=== PATIENT | male | born 1990 | race Caucasian/White ===

== ENCOUNTER 2017-12-11 08:31 | Inpatient (IN) | payer OTHER ==
[2017-12-11 08:55] VITALS: BMI 37.3
--- NOTE | 2017-12-11 11:24 | HP ---
COWS - Scale Resting Pulse: 0= [place] 80 or Below Sweatin=Flushed/Facial Moisture Restless Observation: 1= Difficult to Sit Still Pupil Size: 1= Pupils >than Normal Bone or Joint Aches: 0= None Runny Nose/ Eye Tearin= None GI Upset > 30mins: 1= Stomach Cramp Tremor Observation: 2= Slight Tremor Visible Yawning Observation: 0= None Anxiety or Irritability: 2=Irritable/Anxious Goose Flesh Skin: 3=Piloerection COWS Score: 12 Admission ROS [facility] Chief Complaint: Here for heroin addiction treatment. Allergies/Adverse Reactions: Allergies Allergy/AdvReac Type Severity Reaction Status Date / Time No Known Allergies Allergy Verified 12/11/17 09:30 History of Present Illness: Started with heroin use at age 22. Says was using marijuana since age 14. Started xanax at age 21-offered by someone, says uses xanax ocassionally to get high (take it to sleep). Says took methadone 10mg about 3 days ago, used it to try to stop using heroin. Never used Suboxone or methadone. Uses 10 bags/day, intranasal, last night. 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 after cataract removal at age 4 and no new lens put in) Respiratory: reports: No Symptoms reported Cardiac: reports: No Symptoms Reported GI: reports: No Symptoms Reported : reports: No Symptoms Reported Musculoskeletal: reports: No Symptoms Reported Integumentary: reports: No Symptoms Reported, Other (pt states has rash on chest , abd and back since this morning- no itching, no h/o same) Neuro: reports: No Symptoms reported Psychiatric: reports: other Patient History - Patient Medical History Hx Anemia: No Hx Asthma: No Hx Chronic Obstructive Pulmonary Disease (COPD): No Hx Cancer: No Hx Cardiac Disorders: No Hx Congestive Heart Failure: No Hx Hypertension: No Hx Hypercholesterolemia: No Hx Pacemaker: No HX Cerebrovascular Accident: No Hx Seizures: No Hx Dementia: No Hx Diabetes: No Hx Gastrointestinal Disorders: No Hx Liver Disease: No Hx Genitourinary Disorders: No Hx Sexually Transmitted Disorders: No Hx Renal Disease (ESRD): No Hx Thyroid Disease: No Hx Depression: No Hx Suicide Attempt: No Hx Schizophrenia: No - Patient Surgical History Past Surgical History: Yes Hx Neurologic Surgery: No Hx Cataract Extraction: Yes (had this at age- born with cataracts) Hx Cardiac Surgery: No Hx Lung Surgery: No Hx Breast Surgery: No Hx Breast Biopsy: No Hx Abdominal Surgery: No Hx Appendectomy: No Hx Cholecystectomy: No Hx Genitourinary Surgery: No Hx Section: No Hx Orthopedic Surgery: No Anesthesia Reaction: No - PPD History Previous Implant?: Yes Documented Results: Negative w/o proof Implanted On Prior R Admission?: No - Reproductive History Patient is a Female of Child Bearing Age (11 -55 yrs old): No - Smoking Cessation Smoking history: Current every day smoker Have you smoked in the past 12 months: No Aproximately how many cigarettes per day: 10 Hx Chewing Tobacco Use: No - Substance & Tx. History Hx Alcohol Use: No Substance Use Type: Heroin, Tranquilizers (occ xanax for sleeping) Hx Substance Use Treatment: Yes (last treatment at [facility] 1 year, never jailed) - Substances Abused Heroin Route: Inhalation (uses occasionally) Frequency: Daily Amount used: 10 BAGS DAILY Age of first use: 22 Date of Last Use: 12/10/17 Alprazolam (Xanax) Route: Oral Frequency: 1-2 times per week Amount used: 2 MG PILL Age of first use: 22 Date of Last Use: 12/04/17 Family Disease History - Family Disease History Family History: Unremarkable (says no family h/o above diseases) Admission Physical Exam BHS - Vital Signs Vital Signs: Vital Signs - 24 hr 12/11/17 08:53 Temperature 98.8 F Pulse Rate 61 Respiratory 16 Rate Blood Pressure 143/93 pt states BP not usually high - Physical General Appearance: Yes: Appropriately Dressed, Mild Distress HEENTM: Yes: Hearing grossly Normal, Normal ENT Inspection, Normal Voice, Pharynx Normal (pt with dilated L pupil- no vision, and poor vision R eye: better with glasses on) Respiratory: Yes: Within Normal Limits Neck: Yes: Within Normal Limits Breast: Yes: Breast Exam Deferred Cardiology: Yes: Within Normal Limits Abdominal: Yes: Within Normal Limits Genitourinary: Yes: Within Normal Limits Back: Yes: Within Normal Limits Musculoskeletal: Yes: Within Normal Limits Extremities: Yes: Within Normal Limits Neurological: Yes: Within Normal Limits Integumentary: Yes: Rash (maculo-papular fine, mildly erythematous rash all over body- not itchy, no open lesions) Lymphatic: Yes: Within Normal Limits - Diagnostic (1) Rash and nonspecific skin eruption Status: Acute Comment: non specific rash- seems likely contact dermatitis- but states used new body wash yesterday- (2) 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
[2017-12-11] MEDS ORDERED: MAGNESIUM HYDROX 2400MG/30ML ORAL SUSPENSION 30 ML CUP PO PRN (11:55)
[2017-12-11] MEDS ORDERED: MENTHOL/PHENOL 1 EACH UD MM PRN (11:55)
[2017-12-11] MEDS ORDERED: guaiFENesin/D-METHORPHAN HB 10 ML UNIT-DOSE CUPS PO PRN (11:55)
[2017-12-11] MEDS ORDERED: MAG HYDROX/AL HYDROX/SIMETH 30 ML UNIT-DOSE CUP PO PRN (11:55)
[2017-12-11] MEDS ORDERED: MAGNESIUM CITRATE 300 ML BOTTLE PO PRN (11:55)
[2017-12-11] MEDS ORDERED: P-EPHED 60MG/TRIPROLIDI 2.5MG TABLET PO PRN (11:55)
[2017-12-11] MEDS ORDERED: NICOTINE POLACRILEX 2 MG GUM BUC PRN (11:55)
[2017-12-11] MEDS ORDERED: hydrOXYzine PAMOATE 25 MG CAPSULE (FP) PO PRN (11:55)
[2017-12-11] MEDS ORDERED: LOPERAMIDE HCL 2 MG CAPSULE PO PRN (11:55)
[2017-12-11] MEDS ORDERED: IBUPROFEN 400 MG TABLET (FP) PO PRN (11:55)
[2017-12-11] MEDS ORDERED: ACETAMINOPHEN 325 MG TABLET (FP) PO PRN (11:55)
[2017-12-11] MEDS ORDERED: METHADONE HCL 10 MG TABLET (FOR DETOX USE ONLY) PO ONE ×2 (12:21→23:00)
[2017-12-11] MEDS: diazePAM 5 MG TABLET PO PRN ×3 (12:52→22:34)
[2017-12-11 18:58] LABS: URINE APPEARANCE CLEAR; URINE BILIRUBIN NEGATIVE (<2.0 mg/dL); URINE COLOR LTYELLOW; URINE GLUCOSE (UA) NEGATIVE (NEGATIVE); URINE KETONE NEGATIVE (NEGATIVE); URINE LEUK ESTERASE NEGATIVE (NEGATIVE); URINE NITRITE NEGATIVE (NEGATIVE); URINE PROTEIN NEGATIVE (NEGATIVE); URINE UROBILINOGEN NEGATIVE mg/dL (0.2-1.0)
[2017-12-11] MEDS ORDERED: MELATONIN 5 MG TABLETS PO PRN (22:00)
[2017-12-11] MEDS: THIAMINE HCL 100 MG TABLET (FP) PO SCH (22:34)
[2017-12-11] MEDS: DORZOLAMIDE 2% HCL OPHTHALMIC SOLUTION 10 ML BOTTLE OS SCH (22:35)
[2017-12-11] MEDS: TIMOLOL 0.25% OPHTHALMIC SOL 5 ML BOTTLE OS SCH (22:35)
[2017-12-12] MEDS: diazePAM 5 MG TABLET PO PRN ×5 (04:44→23:06)
[2017-12-12 09:52] LABS: HEMATOCRIT 42.7 % (35.4-49); HEMOGLOBIN 14.4 GM/dL (11.7-16.9); MCH 29.3 pg (25.7-33.7); MCHC 33.8 g/dl (32.0-35.9); MEAN CELL VOLUME 86.8 fl (80-96); MEAN PLT VOLUME 8.9 fl (7.5-11.1); PLATELET COUNT 246 K/MM3 (134-434); RBC 4.91 M/mm3 (4.00-5.60); RDW 13.3 % (11.9-15.9); WHITE BLOOD COUNT 5.6 K/mm3 (4.0-10.0)
[2017-12-12] MEDS ORDERED: METHADONE HCL 10 MG TABLET (FOR DETOX USE ONLY) PO ONE (10:00)
[2017-12-12 10:18] LABS: CHLORIDE 102 mmol/L (98-107); POTASSIUM 4.3 mmol/L (3.5-5.1); SODIUM 140 mmol/L (136-145)
[2017-12-12 10:34] LABS: ALBUMIN 3.8 g/dl (3.4-5.0); ALK PHOS 51 U/L (45-117); ANION GAP 4 (8-16); BILIRUBIN,TOTAL 0.3 mg/dL (0.2-1.0); BLOOD UREA NITROGEN 14 mg/dL (7-18); CALCIUM 9.2 mg/dL (8.5-10.1); CO2 34 mmol/L (21-32); CREATININE 0.9 mg/dL (0.7-1.3); GLUCOSE,RANDOM 87 mg/dL (74-106); SGOT/AST 97 U/L (15-37); SGPT/ALT 61 U/L (12-78); TOT PROT 7.2 g/dl (6.4-8.2)
[2017-12-12] MEDS: DORZOLAMIDE 2% HCL OPHTHALMIC SOLUTION 10 ML BOTTLE OS SCH ×2 (10:36→23:09)
[2017-12-12] MEDS: NICOTINE 14 MG/24 HOURS TOPICAL PATCH TD SCH (10:37)
[2017-12-12] MEDS: PRENATAL VITAMINS W/ FOLIC ACID TABLET (FP) PO SCH (10:37)
[2017-12-12] MEDS: TIMOLOL 0.25% OPHTHALMIC SOL 5 ML BOTTLE OS SCH ×2 (10:37→23:09)
--- NOTE | 2017-12-12 12:31 | PN ---
S COWS - Scale Resting Pulse: 0= [place] 80 or Below Sweatin= Chills/Flushing Restless Observation: 3= Extraneous Movement Pupil Size: 2= Moderately Dilated Bone or Joint Aches: 4=Acute Joint/Muscle Pain Runny Nose/ Eye Tearin= None GI Upset > 30mins: 1= Stomach Cramp Tremor Observation of Outstretched Hands: 1= Tremor [place], Not Seen Yawning Observation: 1= 1-2x During Session Anxiety or Irritability: 2=Irritable/Anxious Goose Flesh Skin: 0=Smooth Skin COWS Score: 15 [facility] Progress Note (SOAP) Subjective: ANXIETY,IRRITABILITY,SWEATS,CRAMPS,RESTLESS/MUSCLE TWITCHING. Objective: 12/12/17 12:29 Vital Signs 12/12/17 12/12/17 06:22 09:18 Temperature 97.9 F 96.1 F L Pulse Rate 60 45 L Respiratory 18 18 Rate Blood Pressure 108/64 117/73 Laboratory Tests 12/11/17 12/12/17 12/12/17 18:00 07:30 07:30 WBC 5.6 RBC 4.91 Hgb 14.4 Hct 42.7 MCV 86.8 MCH 29.3 MCHC 33.8 RDW 13.3 Plt Count 246 MPV 8.9 Sodium Potassium Chloride Carbon Dioxide Anion Gap BUN Creatinine Creat Clearance w eGFR Random Glucose Calcium Total Bilirubin AST ALT Alkaline Phosphatase Total Protein Albumin Urine Color Ltyellow Urine Appearance Clear Urine pH 5.0 Ur Specific [place] 1.019 Urine Protein Negative Urine Glucose (UA) Negative Urine Ketones Negative Urine Blood Negative Urine Nitrite Negative Urine Bilirubin Negative Urine Urobilinogen Negative Ur Leukocyte Esterase Negative RPR Titer HIV 1&2 Antibody Screen Negative HIV P24 Antigen Negative 12/12/17 12/12/17 07:30 07:30 WBC RBC Hgb Hct MCV MCH MCHC RDW Plt Count MPV Sodium 140 Potassium 4.3 Chloride 102 Carbon Dioxide 34 H Anion Gap 4 L BUN 14 Creatinine 0.9 Creat Clearance w eGFR > 60 Random Glucose 87 Calcium 9.2 Total Bilirubin 0.3 AST 97 H ALT 61 Alkaline Phosphatase 51 Total Protein 7.2 Albumin 3.8 Urine Color Urine Appearance Urine pH Ur Specific [place] Urine Protein Urine Glucose (UA) Urine Ketones Urine Blood Urine Nitrite Urine Bilirubin Urine Urobilinogen Ur Leukocyte Esterase RPR Titer Nonreactive HIV 1&2 Antibody Screen HIV P24 Antigen Assessment: 12/12/17 12:29 WITHDRAWAL SX Plan: CONTINUE DETOX
--- NOTE | 2017-12-12 22:12 | EKG ---
Test Reason : Blood Pressure : / mmHG Vent. Rate : 073 BPM Atrial Rate : 073 BPM P-R Int : 146 ms QRS Dur : 092 ms QT Int : 378 ms P-R-T Axes : 042 056 032 degrees QTc Int : 416 ms NORMAL SINUS RHYTHM NORMAL ECG NO PREVIOUS ECGS AVAILABLE Confirmed by JARROD REYNOLDS, AGUSTO ([id number]) on 12/12/2017 10:12:23 PM Referred By: GENI LOPES Confirmed By:AGUSTO GARAY MD
[2017-12-12] MEDS: THIAMINE HCL 100 MG TABLET (FP) PO SCH (23:05)
[2017-12-13] MEDS: diazePAM 5 MG TABLET PO PRN ×2 (03:26→10:48)
[2017-12-13] MEDS ORDERED: METHADONE HCL 5 MG TABLET (FOR DETOX USE ONLY) PO ONE (10:00)
[2017-12-13] MEDS: PRENATAL VITAMINS W/ FOLIC ACID TABLET (FP) PO SCH (10:47)
[2017-12-13] MEDS: TIMOLOL 0.25% OPHTHALMIC SOL 5 ML BOTTLE OS SCH (10:48)
[2017-12-13] MEDS: NICOTINE 14 MG/24 HOURS TOPICAL PATCH TD SCH (10:49)
[2017-12-13] MEDS: DORZOLAMIDE 2% HCL OPHTHALMIC SOLUTION 10 ML BOTTLE OS SCH (10:49)
--- NOTE | 2017-12-13 12:15 | PN ---
S COWS - Scale Resting Pulse: 0= [place] 80 or Below Sweatin= Chills/Flushing Restless Observation: 3= Extraneous Movement Pupil Size: 2= Moderately Dilated Bone or Joint Aches: 1= Mild Discomfort Runny Nose/ Eye Tearin= None GI Upset > 30mins: 0= None Tremor Observation of Outstretched Hands: 4= Gross Tremor/Twitching Yawning Observation: 1= 1-2x During Session Anxiety or Irritability: 1=Feels Anxious/Irritable Goose Flesh Skin: 0=Smooth Skin COWS Score: 13 [facility] Progress Note (SOAP) Subjective: ANXIETY,RESTLESSNESS LEGS,FATIGUE. Objective: 12/13/17 12:15 Vital Signs 12/13/17 12/13/17 12/13/17 06:15 06:30 09:23 Temperature 97.5 F L 97.7 F Pulse Rate 47 L 66 Respiratory 18 18 18 Rate Blood Pressure 105/60 122/81 Laboratory Tests 12/11/17 12/12/17 12/12/17 18:00 07:30 07:30 WBC 5.6 RBC 4.91 Hgb 14.4 Hct 42.7 MCV 86.8 MCH 29.3 MCHC 33.8 RDW 13.3 Plt Count 246 MPV 8.9 Sodium Potassium Chloride Carbon Dioxide Anion Gap BUN Creatinine Creat Clearance w eGFR Random Glucose Calcium Total Bilirubin AST ALT Alkaline Phosphatase Total Protein Albumin Urine Color Ltyellow Urine Appearance Clear Urine pH 5.0 Ur Specific [place] 1.019 Urine Protein Negative Urine Glucose (UA) Negative Urine Ketones Negative Urine Blood Negative Urine Nitrite Negative Urine Bilirubin Negative Urine Urobilinogen Negative Ur Leukocyte Esterase Negative RPR Titer HIV 1&2 Antibody Screen Negative HIV P24 Antigen Negative 12/12/17 12/12/17 07:30 07:30 WBC RBC Hgb Hct MCV MCH MCHC RDW Plt Count MPV Sodium 140 Potassium 4.3 Chloride 102 Carbon Dioxide 34 H Anion Gap 4 L BUN 14 Creatinine 0.9 Creat Clearance w eGFR > 60 Random Glucose 87 Calcium 9.2 Total Bilirubin 0.3 AST 97 H ALT 61 Alkaline Phosphatase 51 Total Protein 7.2 Albumin 3.8 Urine Color Urine Appearance Urine pH Ur Specific [place] Urine Protein Urine Glucose (UA) Urine Ketones Urine Blood Urine Nitrite Urine Bilirubin Urine Urobilinogen Ur Leukocyte Esterase RPR Titer Nonreactive HIV 1&2 Antibody Screen HIV P24 Antigen Assessment: 12/13/17 12:15 WITHDRAWAL SX Plan: CONTINUE DETOX
[2017-12-13 13:27] VITALS: BP 138/87; PULSE 70; TEMP 98.6
[2017-12-13] MEDS ORDERED: CYCLOBENZAPRINE HCL 10 MG TABLET (FP) PO SCH (14:00)
--- NOTE | 2017-12-13 15:48 | DS ---
[facility] Detox Discharge Summary Admission Date: 12/11/17 Discharge Date: 12/13/17 - History Present History: Opioid Dependence Additional Comments: PT SIGNED OUT AMA DECLINING TO CONTINUE WITH DETOX PER PROTOCOL. ALERT O X 3. Pertinent Past History: PLEASE SEE DX BELOW. - Physical Exam Results Vital Signs: Vital Signs Temperature 98.6 F 12/13/17 13:25 Pulse Rate 70 12/13/17 13:25 Respiratory Rate 16 12/13/17 13:25 Blood Pressure 138/87 12/13/17 13:25 O2 Sat by Pulse Oximetry (%) Pertinent Admission Physical Exam Findings: WITHDRAWAL SX Laboratory Tests 12/11/17 12/12/17 12/12/17 18:00 07:30 07:30 WBC 5.6 RBC 4.91 Hgb 14.4 Hct 42.7 MCV 86.8 MCH 29.3 MCHC 33.8 RDW 13.3 Plt Count 246 MPV 8.9 Sodium Potassium Chloride Carbon Dioxide Anion Gap BUN Creatinine Creat Clearance w eGFR Random Glucose Calcium Total Bilirubin AST ALT Alkaline Phosphatase Total Protein Albumin Urine Color Ltyellow Urine Appearance Clear Urine pH 5.0 Ur Specific [place] 1.019 Urine Protein Negative Urine Glucose (UA) Negative Urine Ketones Negative Urine Blood Negative Urine Nitrite Negative Urine Bilirubin Negative Urine Urobilinogen Negative Ur Leukocyte Esterase Negative RPR Titer HIV 1&2 Antibody Screen Negative HIV P24 Antigen Negative 12/12/17 12/12/17 07:30 07:30 WBC RBC Hgb Hct MCV MCH MCHC RDW Plt Count MPV Sodium 140 Potassium 4.3 Chloride 102 Carbon Dioxide 34 H Anion Gap 4 L BUN 14 Creatinine 0.9 Creat Clearance w eGFR > 60 Random Glucose 87 Calcium 9.2 Total Bilirubin 0.3 AST 97 H ALT 61 Alkaline Phosphatase 51 Total Protein 7.2 Albumin 3.8 Urine Color Urine Appearance Urine pH Ur Specific [place] Urine Protein Urine Glucose (UA) Urine Ketones Urine Blood Urine Nitrite Urine Bilirubin Urine Urobilinogen Ur Leukocyte Esterase RPR Titer Nonreactive HIV 1&2 Antibody Screen HIV P24 Antigen - Treatment Hospital Course: Discharged Condition Good - Medication Discharge Medications: Ambulatory Orders Dorzolamide HCl/Timolol Maleat [Cosopt Eye Drops] 1 drop OS BID 12/11/17 - Diagnosis (1) Opioid dependence with withdrawal Status: Acute (2) Nicotine dependence Status: Acute Qualifiers: Nicotine product type: cigarettes Substance use status: in withdrawal Qualified Code(s): F17.213 - Nicotine dependence, cigarettes, with withdrawal (3) Blindness of left eye Status: Chronic (4) History of cataract as a child Status: Chronic Qualifiers: Laterality: left Qualified Code(s): Z98.42 - Cataract extraction status, left eye - AMA Did Patient Leave Against Medical Advice: Yes (AMA)
[2017-12-14] MEDS ORDERED: METHADONE HCL 10 MG TABLET (FOR DETOX USE ONLY) PO ONE (10:00)
[2017-12-14] MEDS ORDERED: METHADONE HCL 5 MG TABLET (FOR DETOX USE ONLY) PO ONE (10:00)
[2017-12-15] MEDS ORDERED: METHADONE HCL 5 MG TABLET (FOR DETOX USE ONLY) PO ONE (06:00)
[2017-12-15] MEDS ORDERED: METHADONE HCL 10 MG TABLET (FOR DETOX USE ONLY) PO ONE (10:00)
[2017-12-16] MEDS ORDERED: METHADONE HCL 5 MG TABLET (FOR DETOX USE ONLY) PO ONE (06:00)
== END 2017-12-13 14:12 | disposition left against medical advice (07) | DRG 770 ==
LOC: YASAS 08:31 → Y3N 11:35
PROVIDERS: ADMIT Family Medicine Addiction Medicine; ATTEND Family Medicine Addiction Medicine
PROC: HZ2ZZZZ Detoxification Services for Substance Abuse Treatment (ICD-10-PCS; principal; 2017-12-11)
DX: F11.23 Opioid dependence with withdrawal (principal); F13.10 Sedative, hypnotic or anxiolytic abuse, uncomplicated; F17.213 Nicotine dependence, cigarettes, with withdrawal; H54.40 Blindness, one eye, unspecified eye; H40.50X0 Glaucoma secondary to other eye disorders, unspecified eye, stage unspecified; R21 Rash and other nonspecific skin eruption
CPT/HCPCS: 36415; 80053; 81003; 85027; 86593; 87389; 93005; 93010

== ENCOUNTER 2018-09-27 08:51 | Inpatient (IN) | payer OTHER ==
[2018-09-27 09:31] VITALS: BMI 27.1
--- NOTE | 2018-09-27 10:54 | HP ---
COWS - Scale Resting Pulse: 0= [place] 80 or Below Sweatin= Chills/Flushing Restless Observation: 3= Extraneous Movement Pupil Size: 1= Pupils >than Normal Bone or Joint Aches: 2= Severe Diffuse Aches Runny Nose/ Eye Tearin= Runny Nose/Eyes GI Upset > 30mins: 3= Vomiting/Diarrhea Tremor Observation: 2= Slight Tremor Visible Yawning Observation: 1= 1-2x During Session Anxiety or Irritability: 2=Irritable/Anxious Goose Flesh Skin: 0=Smooth Skin COWS Score: 17 CIWA Score Nausea/Vomitin Muscle Tremors: 2 Anxiety: 2 Agitation: 2 Paroxysmal Sweats: 2 Orientation: 1-Uncertain about Date Tacttile Disturbances: 1-Very Mild Itch/Numbness Auditory Disturbances: 1-Very Mild Visual Disturbances: 0-None Headache: 2-Mild CIWA-Ar Total Score: 15 - Admission Criteria [facility] Guidelines: Admission for Medically Managed Detox: Requires at least one of the followin. CIWA greater than 12 2. Seizures within the past 24 hours 3. Delirium tremens within the past 24 hours 4. Hallucinations within the past 24 hours 5. Acute intervention needed for co occurring medical disorder 6. Acute intervention needed for co occurring psychiatric disorder 7. Severe withdrawal that cannot be handled at a lower level of care (continued vomiting, continued diarrhea, abnormal vital signs) requiring intravenous medication and/or fluids 8. Admission ROS S - HPI Chief Complaint: i nee help to stop using heroin and alcohol Allergies/Adverse Reactions: Allergies Allergy/AdvReac Type Severity Reaction Status Date / Time No Known Allergies Allergy Verified 09/27/18 09:24 History of Present Illness: this 28 years old male with heroin and alcohol dependence,seeking detox, withdrawal symptom,seeking detox last treatment in [facility] 01/04 nicotine dependence insomnia on medication fx of right 5th metacarpal bone on 09/16/18 seen by pmd and hand specialist on splint longest sobriety 8 months plan for rehab Exam Limitations: No Limitations - Ebola screening Have you traveled outside of the country in the last 21 days: No (N) Have you had contact with anyone from an Ebola affected area: No Do you have a fever: No - Review of Systems Constitutional: Chills, Loss of Appetite, Night Sweats, Changes in sleep, Weakness EENT: reports: Tearing, Nose Congestion Respiratory: reports: No Symptoms reported Cardiac: reports: No Symptoms Reported GI: reports: Nausea, Poor Appetite, Vomiting, Abdominal cramping : reports: No Symptoms Reported Musculoskeletal: reports: Back Pain, Joint Pain, Joint Stiffness, Other (fx of right 5th metacarpal bone on 09/16/18 on splint seen by hand specialist) Integumentary: reports: Dryness Neuro: reports: Headache, Tremors Endocrine: reports: No Symptoms Reported Hematology: reports: No Symptoms Reported Psychiatric: reports: No Sypmtoms Reported, Judgement Intact, Mood/Affect Appropiate, Orientated x3, other (insomnia) Other Systems: Reviewed and Negative Patient History - Patient Medical History Hx Anemia: No Hx Asthma: No Hx Chronic Obstructive Pulmonary Disease (COPD): No Hx Cancer: No Hx Cardiac Disorders: No Hx Congestive Heart Failure: No Hx Hypertension: No Hx Hypercholesterolemia: No Hx Pacemaker: No HX Cerebrovascular Accident: No Hx Seizures: No Hx Dementia: No Hx Diabetes: No Hx Gastrointestinal Disorders: No Hx Liver Disease: No Hx Genitourinary Disorders: No Hx Sexually Transmitted Disorders: No Hx Renal Disease (ESRD): No Hx Thyroid Disease: No Hx Human Immunodeficiency Virus (HIV): No (last 05/07 negative) Hx Hepatitis C: No Hx Depression: No Hx Suicide Attempt: No Hx Bipolar Disorder: No Hx Schizophrenia: No Other Medical History: insomnia,no suicidal,no homicidal - Patient Surgical History Past Surgical History: Yes Hx Neurologic Surgery: No Hx Cataract Extraction: Yes (had this at age- born with cataracts legally blindness left) Hx Cardiac Surgery: No Hx Lung Surgery: No Hx Breast Surgery: No Hx Breast Biopsy: No Hx Abdominal Surgery: No Hx Appendectomy: No Hx Cholecystectomy: No Hx Genitourinary Surgery: No Hx Section: No Hx Orthopedic Surgery: No Other Surgical History: blindness of left eye,since Anesthesia Reaction: No - PPD History Previous Implant?: Yes Documented Results: Negative w/o proof Implanted On Prior R Admission?: Yes Date: 12/13/17 Results: not read PPD to be Administered?: Yes - Smoking Cessation Smoking history: Current every day smoker Have you smoked in the past 12 months: No Aproximately how many cigarettes per day: 10 Hx Chewing Tobacco Use: No Initiated information on smoking cessation: Yes 'Breaking Loose' booklet given: 09/27/18 - Substance & Tx. History Hx Alcohol Use: Yes Hx Substance Use: Yes Substance Use Type: Alcohol, Heroin Hx Substance Use Treatment: Yes ([facility] 01/04) - Substances abused Heroin Substance route: Inhalation Frequency: Daily Amount used: 10 bags Age of first use: 22 Date of last use: 09/26/18 Alcohol Substance route: Oral Frequency: Daily Amount used: 1/2 L liquor, Age of first use: 14 Date of last use: 09/25/18 Other Other (specify): street methadone Substance route: Oral Frequency: 1-2 times per week Amount used: 20mg Age of first use: 28 Date of last use: 09/24/18 Family Disease History - Family Disease History Family History: Denies Admission Physical Exam S - Vital Signs Vital Signs: Vital Signs - 24 hr 09/27/18 09/27/18 09:25 09:40 Temperature 98.1 F 98.1 F Pulse Rate 55 L 55 L Respiratory 18 18 Rate Blood Pressure 141/92 141/92 - Physical General Appearance: Yes: Moderate Distress, Tremorous, Irritable, Sweating, Anxious HEENTM: Yes: Normal ENT Inspection, LOGAN, Pharynx Normal Respiratory: Yes: Lungs Clear, Normal Breath Sounds, No Respiratory Distress Neck: Yes: Within Normal Limits, Supple, Trachea in good position Breast: Yes: Within Normal Limits Cardiology: Yes: Within Normal Limits, Regular Rhythm, Regular Rate, S1, S2 Abdominal: Yes: Within Normal Limits, Normal Bowel Sounds, Non Tender, Flat, Soft Genitourinary: Yes: Within Normal Limits Back: Yes: Normal Inspection, Muscle Spasm Musculoskeletal: Yes: Back pain, Muscle Pain Extremities: Yes: Other (fx of right 5th metacarpal bone on splint treated by hand specialist on 09/16/18) Neurological: Yes: Within Normal Limits, fire dispatcher II-XII NML intact, Alert, Motor Strength 5/5 Integumentary: Yes: Dry Lymphatic: Yes: Within Normal Limits - Diagnostic (1) Opioid dependence with withdrawal Current Visit: No Status: Acute (2) Nicotine dependence Current Visit: No Status: Acute Qualifiers: Nicotine product type: cigarettes Substance use status: in withdrawal Qualified Code(s): F17.213 - Nicotine dependence, cigarettes, with withdrawal (3) Blindness of left eye Current Visit: No Status: Chronic Comment: after cataract extraction and not able to replace lens as a child (4) Glaucoma associated with anomalies of iris Current Visit: No Status: Chronic Comment: pt states now has mild glaucoma, after cataract extraction as child (5) History of cataract as a child Current Visit: No Status: Chronic Qualifiers: Laterality: left Qualified Code(s): Z98.42 - Cataract extraction status, left eye (6) Alcohol dependence with uncomplicated withdrawal Current Visit: Yes Status: Acute (7) Closed fracture of 5th metacarpal Current Visit: Yes Status: Acute Cleared for Admission [facility] - Detox or Rehab [facility] Level of Care: Medically Managed Detox Regimen/Protocol: Methadone/Valium Urine Drug Screen - Test Device Lot number: [id number] Expiration date: 05/19/20 - Control Is test valid?: Yes - Results Drug screen NEGATIVE: No Urine drug screen results: MET-Methamphetamine, FEN-Fentanyl, MOP-Opiates, MTD- Methadone Inpatient Rehab Admission - Rehab Decision to Admit Inpatient rehab admission?: No
[2018-09-27] MEDS ORDERED: ACETAMINOPHEN 325 MG TABLET (FP) PO PRN ×2 (11:06)
[2018-09-27] MEDS ORDERED: METHOCARBAMOL 500 MG TABLET PO PRN (11:06)
[2018-09-27] MEDS ORDERED: cloNIDine HCL 0.1 MG TABLET PO PRN (11:06)
[2018-09-27] MEDS ORDERED: MAGNESIUM HYDROX 2400MG/30ML ORAL SUSPENSION 30 ML CUP PO PRN (11:06)
[2018-09-27] MEDS ORDERED: IBUPROFEN 400 MG TABLET (FP) PO PRN (11:06)
[2018-09-27] MEDS ORDERED: BISMUTH SUBSALICYLATE 524 MG/30 ML UD PO PRN (11:06)
[2018-09-27] MEDS ORDERED: hydrOXYzine PAMOATE 25 MG CAPSULE (FP) PO PRN (11:06)
[2018-09-27] MEDS ORDERED: MENTHOL/PHENOL 1 EACH UD MM PRN (11:06)
[2018-09-27] MEDS ORDERED: MAGNESIUM CITRATE 300 ML BOTTLE PO PRN (11:06)
[2018-09-27] MEDS ORDERED: METHADONE HCL 10 MG TABLET (FOR DETOX USE ONLY) PO ONE ×2 (11:08→23:00)
[2018-09-27] MEDS: diazePAM 5 MG TABLET PO PRN ×2 (11:53→18:55)
[2018-09-27] MEDS: diazePAM 5 MG TABLET PO SCH ×2 (14:40→22:16)
[2018-09-27 16:07] LABS: ALBUMIN 4.2 g/dl (3.4-5.0); ALK PHOS 64 U/L (45-117); ANION GAP 6 MMOL/L (8-16); BILIRUBIN,TOTAL 0.2 mg/dL (0.2-1); BLOOD UREA NITROGEN 11 mg/dL (7-18); CALCIUM 8.8 mg/dL (8.5-10.1); CHLORIDE 98 mmol/L (98-107); CO2 33 mmol/L (21-32); GLUCOSE,RANDOM 76 mg/dL (74-106); POTASSIUM 4.1 mmol/L (3.5-5.1); SGOT/AST 16 U/L (15-37); SGPT/ALT 30 U/L (13-61); SODIUM 137 mmol/L (136-145); TOT PROT 7.8 g/dl (6.4-8.2)
[2018-09-27 16:24] LABS: URINE APPEARANCE CLEAR; URINE BILIRUBIN NEGATIVE (NEGATIVE); URINE COLOR YELLOW; URINE GLUCOSE (UA) NEGATIVE (NEGATIVE); URINE KETONE NEGATIVE (NEGATIVE); URINE LEUK ESTERASE NEGATIVE (NEGATIVE); URINE NITRITE NEGATIVE (NEGATIVE); URINE PROTEIN NEGATIVE (NEGATIVE); URINE UROBILINOGEN 0.2 mg/dL (0.2-1.0)
[2018-09-27 16:38] LABS: HEMATOCRIT 43.8 % (35.4-49); HEMOGLOBIN 14.8 GM/dL (11.7-16.9); MCH 29.7 pg (25.7-33.7); MCHC 33.8 g/dl (32.0-35.9); MEAN CELL VOLUME 87.8 fl (80-96); MEAN PLT VOLUME 8.6 fl (7.5-11.1); PLATELET COUNT 347 K/MM3 (134-434); RBC 4.99 M/mm3 (4.00-5.60); RDW 12.6 % (11.9-15.9); WHITE BLOOD COUNT 6.7 K/mm3 (4.0-10.0)
[2018-09-27] MEDS: MAG HYDROX/AL HYDROX/SIMETH 30 ML UNIT-DOSE CUP PO PRN (20:46)
[2018-09-27] MEDS ORDERED: PATIENT'S OWN MEDICATION (NON-FORMULARY) (Dorzolamide Hcl/Timolol Maleat [Cosopt Eye Drops OS SCH (22:00)
[2018-09-27] MEDS: traZODone HCL 50 MG TABLET (FP) PO SCH (22:15)
[2018-09-27] MEDS: THIAMINE HCL 100 MG TABLET (FP) PO SCH (22:15)
[2018-09-27] MEDS: DORZOLAMIDE 2% HCL OPHTHALMIC SOLUTION 10 ML BOTTLE OS SCH (22:17)
[2018-09-27] MEDS: TIMOLOL 0.5% OPHTHALMIC SOL 5 ML BOTTLE OS SCH (22:18)
[2018-09-27] MEDS: MELATONIN 5 MG TABLETS PO PRN (22:20)
[2018-09-28] MEDS: diazePAM 5 MG TABLET PO SCH ×3 (05:28→22:28)
[2018-09-28] MEDS: diazePAM 5 MG TABLET PO PRN ×3 (08:24→17:30)
[2018-09-28] MEDS ORDERED: METHADONE HCL 10 MG TABLET (FOR DETOX USE ONLY) PO ONE (10:00)
[2018-09-28] MEDS: PRENATAL VITAMINS W/ FOLIC ACID TABLET (FP) PO SCH (10:33)
[2018-09-28] MEDS: DORZOLAMIDE 2% HCL OPHTHALMIC SOLUTION 10 ML BOTTLE OS SCH ×2 (10:33→22:28)
[2018-09-28] MEDS: TIMOLOL 0.5% OPHTHALMIC SOL 5 ML BOTTLE OS SCH ×2 (10:34→22:28)
--- NOTE | 2018-09-28 11:54 | PN ---
[facility] CIWA - CIWA Score Nausea/Vomitin-Mild Nausea/No Vomiting Muscle Tremors: 4-Moderate,w/Arms Extend Anxiety: 3 Agitation: 2 Paroxysmal Sweats: 1-Minimal Palms Moist Orientation: 1-Uncertain about Date Tacttile Disturbances: 0-None Auditory Disturbances: 0-None Visual Disturbances: 0-None Headache: 0-None Present CIWA-Ar Total Score: 12 S COWS - Scale Resting Pulse: 0= [place] 80 or Below Sweatin= Chills/Flushing Restless Observation: 0= Sits Still Pupil Size: 0= Normal to Room Light Bone or Joint Aches: 2= Severe Diffuse Aches Runny Nose/ Eye Tearin= Nasal Congestion GI Upset > 30mins: 2= Nausea/Diarrhea Tremor Observation of Outstretched Hands: 1= Tremor [place], Not Seen Yawning Observation: 1= 1-2x During Session Anxiety or Irritability: 1=Feels Anxious/Irritable Goose Flesh Skin: 3=Piloerection COWS Score: 12 [facility] Progress Note (SOAP) Subjective: body aches tired trouble resting at night Objective: 09/28/18 11:53 Vital Signs Temperature 98.6 F 09/28/18 09:41 Pulse Rate 73 09/28/18 09:41 Respiratory Rate 20 09/28/18 09:41 Blood Pressure 104/67 09/28/18 09:41 O2 Sat by Pulse Oximetry (%) Laboratory Last Values WBC 6.7 K/mm3 (4.0-10.0) 09/27/18 11:15 RBC 4.99 M/mm3 (4.00-5.60) 09/27/18 11:15 Hgb 14.8 GM/dL (11.7-16.9) 09/27/18 11:15 Hct 43.8 % (35.4-49) 09/27/18 11:15 MCV 87.8 fl (80-96) 09/27/18 11:15 MCH 29.7 pg (25.7-33.7) 09/27/18 11:15 MCHC 33.8 g/dl (32.0-35.9) 09/27/18 11:15 RDW 12.6 % (11.9-15.9) 09/27/18 11:15 Plt Count 347 K/MM3 (134-434) D 09/27/18 11:15 MPV 8.6 fl (7.5-11.1) 09/27/18 11:15 Sodium 137 mmol/L (136-145) 09/27/18 11:15 Potassium 4.1 mmol/L (3.5-5.1) 09/27/18 11:15 Chloride 98 mmol/L (98-107) 09/27/18 11:15 Carbon Dioxide 33 mmol/L (21-32) H 09/27/18 11:15 Anion Gap 6 MMOL/L (8-16) L 09/27/18 11:15 BUN 11 mg/dL (7-18) 09/27/18 11:15 Creatinine 1.0 mg/dL (0.55-1.3) 09/27/18 11:15 Creat Clearance w eGFR 89.63 (>60) 09/27/18 11:15 Random Glucose 76 mg/dL (74-106) 09/27/18 11:15 Calcium 8.8 mg/dL (8.5-10.1) 09/27/18 11:15 Total Bilirubin 0.2 mg/dL (0.2-1) 09/27/18 11:15 AST 16 U/L (15-37) 09/27/18 11:15 ALT 30 U/L (13-61) 09/27/18 11:15 Alkaline Phosphatase 64 U/L (45-117) 09/27/18 11:15 Total Protein 7.8 g/dl (6.4-8.2) 09/27/18 11:15 Albumin 4.2 g/dl (3.4-5.0) 09/27/18 11:15 Urine Color Yellow 09/27/18 12:40 Urine Appearance Clear 09/27/18 12:40 Urine pH 5.0 (5.0-8.0) 09/27/18 12:40 Ur Specific [place] 1.024 (1.010-1.035) 09/27/18 12:40 Urine Protein Negative (NEGATIVE) 09/27/18 12:40 Urine Glucose (UA) Negative (NEGATIVE) 09/27/18 12:40 Urine Ketones Negative (NEGATIVE) 09/27/18 12:40 Urine Blood Negative (NEGATIVE) 09/27/18 12:40 Urine Nitrite Negative (NEGATIVE) 09/27/18 12:40 Urine Bilirubin Negative (NEGATIVE) 09/27/18 12:40 Urine Urobilinogen 0.2 mg/dL (0.2-1.0) 09/27/18 12:40 Ur Leukocyte Esterase Negative (NEGATIVE) 09/27/18 12:40 RPR Titer Nonreactive (NONREACTIVE) 09/27/18 11:15 lab noted Assessment: 09/28/18 11:53 withdrawal sx Plan: continue detox
[2018-09-28] MEDS: MAG HYDROX/AL HYDROX/SIMETH 30 ML UNIT-DOSE CUP PO PRN ×2 (14:14→22:29)
[2018-09-28] MEDS: THIAMINE HCL 100 MG TABLET (FP) PO SCH (22:28)
[2018-09-28] MEDS: traZODone HCL 50 MG TABLET (FP) PO SCH (22:28)
[2018-09-28] MEDS: MELATONIN 5 MG TABLETS PO PRN (22:29)
[2018-09-29] MEDS: diazePAM 5 MG TABLET PO PRN ×4 (01:22→19:39)
[2018-09-29] MEDS ORDERED: diazePAM 5 MG TABLET PO ONE (06:00)
[2018-09-29] MEDS ORDERED: METHADONE HCL 10 MG TABLET (FOR DETOX USE ONLY) PO ONE (10:00)
[2018-09-29] MEDS: PRENATAL VITAMINS W/ FOLIC ACID TABLET (FP) PO SCH (10:30)
[2018-09-29] MEDS: TIMOLOL 0.5% OPHTHALMIC SOL 5 ML BOTTLE OS SCH ×2 (10:31→22:15)
[2018-09-29] MEDS: DORZOLAMIDE 2% HCL OPHTHALMIC SOLUTION 10 ML BOTTLE OS SCH ×2 (10:31→22:15)
--- NOTE | 2018-09-29 15:24 | PN ---
S CIWA - CIWA Score Nausea/Vomitin-No Nausea/No Vomiting Muscle Tremors: None Anxiety: 3 Agitation: 0-Normal Activity Paroxysmal Sweats: No Perspiration Orientation: 0-Oriented Tacttile Disturbances: 2-Mild Itch/Numbness/Burn Auditory Disturbances: 1-Very Mild Visual Disturbances: 3-Moderate Sensitivity Headache: 0-None Present CIWA-Ar Total Score: 9 BHS COWS - Scale Resting Pulse: 0= [place] 80 or Below Sweatin= No chills or Flushing Restless Observation: 0= Sits Still Pupil Size: 0= Normal to Room Light Bone or Joint Aches: 2= Severe Diffuse Aches Runny Nose/ Eye Tearin= Nasal Congestion GI Upset > 30mins: 0= None Tremor Observation of Outstretched Hands: 0= None Yawning Observation: 2= >3x During Session Anxiety or Irritability: 2=Irritable/Anxious Goose Flesh Skin: 3=Piloerection COWS Score: 10 S Progress Note (SOAP) Subjective: Body Aches, Anxious, Interrupted Sleep. Objective: PATIENT A & O X 3, OBSERVED AMBULATING ON UNIT. IN NO ACUTE DISTRESS. 09/29/18 15:25 Vital Signs Temperature 97.9 F 09/29/18 13:29 Pulse Rate 51 L 09/29/18 13:29 Respiratory Rate 18 09/29/18 13:29 Blood Pressure 114/67 09/29/18 13:29 O2 Sat by Pulse Oximetry (%) Laboratory Tests 09/27/18 09/27/18 09/27/18 11:15 11:15 11:15 WBC 6.7 RBC 4.99 Hgb 14.8 Hct 43.8 MCV 87.8 MCH 29.7 MCHC 33.8 RDW 12.6 Plt Count 347 D MPV 8.6 Sodium 137 Potassium 4.1 Chloride 98 Carbon Dioxide 33 H Anion Gap 6 L BUN 11 Creatinine 1.0 Creat Clearance w eGFR 89.63 Random Glucose 76 Calcium 8.8 Total Bilirubin 0.2 AST 16 ALT 30 Alkaline Phosphatase 64 Total Protein 7.8 Albumin 4.2 Urine Color Urine Appearance Urine pH Ur Specific [place] Urine Protein Urine Glucose (UA) Urine Ketones Urine Blood Urine Nitrite Urine Bilirubin Urine Urobilinogen Ur Leukocyte Esterase RPR Titer Nonreactive 09/27/18 12:40 WBC RBC Hgb Hct MCV MCH MCHC RDW Plt Count MPV Sodium Potassium Chloride Carbon Dioxide Anion Gap BUN Creatinine Creat Clearance w eGFR Random Glucose Calcium Total Bilirubin AST ALT Alkaline Phosphatase Total Protein Albumin Urine Color Yellow Urine Appearance Clear Urine pH 5.0 Ur Specific [place] 1.024 Urine Protein Negative Urine Glucose (UA) Negative Urine Ketones Negative Urine Blood Negative Urine Nitrite Negative Urine Bilirubin Negative Urine Urobilinogen 0.2 Ur Leukocyte Esterase Negative RPR Titer LABS NOTED. Assessment: 09/29/18 15:26 WITHDRAWAL SYMPTOMS. Plan: CONTINUE DETOX. ENCOURAGE AMBULATION.
[2018-09-29] MEDS: MAG HYDROX/AL HYDROX/SIMETH 30 ML UNIT-DOSE CUP PO PRN (16:45)
[2018-09-29] MEDS: THIAMINE HCL 100 MG TABLET (FP) PO SCH (22:14)
[2018-09-29] MEDS: traZODone HCL 50 MG TABLET (FP) PO SCH (22:15)
[2018-09-29] MEDS: MELATONIN 5 MG TABLETS PO PRN (22:17)
[2018-09-30] MEDS: diazePAM 5 MG TABLET PO PRN ×2 (06:00→10:07)
[2018-09-30] MEDS ORDERED: METHADONE HCL 10 MG TABLET (FOR DETOX USE ONLY) PO ONE (10:00)
[2018-09-30] MEDS: PRENATAL VITAMINS W/ FOLIC ACID TABLET (FP) PO SCH (10:06)
[2018-09-30] MEDS: DORZOLAMIDE 2% HCL OPHTHALMIC SOLUTION 10 ML BOTTLE OS SCH ×2 (10:08→22:04)
[2018-09-30] MEDS: TIMOLOL 0.5% OPHTHALMIC SOL 5 ML BOTTLE OS SCH ×2 (10:08→22:04)
--- NOTE | 2018-09-30 14:11 | PN ---
BHS Progress Note (SOAP) Subjective: Sweating, Fatigue. Objective: PATIENT A & O X 3, OBSERVED AMBULATING ON UNIT. IN NO ACUTE DISTRESS. 09/30/18 14:12 Vital Signs Temperature 97.1 F L 09/30/18 09:34 Pulse Rate 68 09/30/18 09:34 Respiratory Rate 18 09/30/18 09:34 Blood Pressure 129/80 09/30/18 09:34 O2 Sat by Pulse Oximetry (%) Laboratory Tests 09/27/18 09/27/18 09/27/18 11:15 11:15 11:15 WBC 6.7 RBC 4.99 Hgb 14.8 Hct 43.8 MCV 87.8 MCH 29.7 MCHC 33.8 RDW 12.6 Plt Count 347 D MPV 8.6 Sodium 137 Potassium 4.1 Chloride 98 Carbon Dioxide 33 H Anion Gap 6 L BUN 11 Creatinine 1.0 Creat Clearance w eGFR 89.63 Random Glucose 76 Calcium 8.8 Total Bilirubin 0.2 AST 16 ALT 30 Alkaline Phosphatase 64 Total Protein 7.8 Albumin 4.2 Urine Color Urine Appearance Urine pH Ur Specific [place] Urine Protein Urine Glucose (UA) Urine Ketones Urine Blood Urine Nitrite Urine Bilirubin Urine Urobilinogen Ur Leukocyte Esterase RPR Titer Nonreactive 09/27/18 12:40 WBC RBC Hgb Hct MCV MCH MCHC RDW Plt Count MPV Sodium Potassium Chloride Carbon Dioxide Anion Gap BUN Creatinine Creat Clearance w eGFR Random Glucose Calcium Total Bilirubin AST ALT Alkaline Phosphatase Total Protein Albumin Urine Color Yellow Urine Appearance Clear Urine pH 5.0 Ur Specific [place] 1.024 Urine Protein Negative Urine Glucose (UA) Negative Urine Ketones Negative Urine Blood Negative Urine Nitrite Negative Urine Bilirubin Negative Urine Urobilinogen 0.2 Ur Leukocyte Esterase Negative RPR Titer LABS NOTED. Assessment: 09/30/18 14:14 WITHDRAWAL SYMPTOMS. Plan: CONTINUE DETOX. PATIENT SCHEDULED FOR D/C TOMORROW.
[2018-09-30] MEDS: THIAMINE HCL 100 MG TABLET (FP) PO SCH (22:03)
[2018-09-30] MEDS: traZODone HCL 50 MG TABLET (FP) PO SCH (22:04)
[2018-09-30] MEDS: MELATONIN 5 MG TABLETS PO PRN (22:05)
[2018-10-01] MEDS ORDERED: METHADONE HCL 5 MG TABLET (FOR DETOX USE ONLY) PO ONE (06:00)
[2018-10-01 09:32] VITALS: BP 120/80; PULSE 70; TEMP 97.3
[2018-10-01] MEDS: DORZOLAMIDE 2% HCL OPHTHALMIC SOLUTION 10 ML BOTTLE OS SCH (10:41)
[2018-10-01] MEDS: PRENATAL VITAMINS W/ FOLIC ACID TABLET (FP) PO SCH (10:41)
[2018-10-01] MEDS: TIMOLOL 0.5% OPHTHALMIC SOL 5 ML BOTTLE OS SCH (10:41)
--- NOTE | 2018-10-01 15:07 | DS ---
[facility] Detox Discharge Summary Admission Date: 09/27/18 Discharge Date: 10/01/18 - History Present History: Alcohol Dependence, Opioid Dependence Additional Comments: 28 years old male admitted on 09/27/18 for alcohol and opiate withdrawal stabilization completed detox regimen [facility] Pertinent Past History: patient agrees to return tomorrow for [facility] - Physical Exam Results Vital Signs: Vital Signs Temperature 97.3 F L 10/01/18 09:32 Pulse Rate 70 10/01/18 09:32 Respiratory Rate 18 10/01/18 09:32 Blood Pressure 120/80 10/01/18 09:32 O2 Sat by Pulse Oximetry (%) Pertinent Admission Physical Exam Findings: alcohol and opiate withdrawal sx Laboratory Last Values WBC 6.7 K/mm3 (4.0-10.0) 09/27/18 11:15 RBC 4.99 M/mm3 (4.00-5.60) 09/27/18 11:15 Hgb 14.8 GM/dL (11.7-16.9) 09/27/18 11:15 Hct 43.8 % (35.4-49) 09/27/18 11:15 MCV 87.8 fl (80-96) 09/27/18 11:15 MCH 29.7 pg (25.7-33.7) 09/27/18 11:15 MCHC 33.8 g/dl (32.0-35.9) 09/27/18 11:15 RDW 12.6 % (11.9-15.9) 09/27/18 11:15 Plt Count 347 K/MM3 (134-434) D 09/27/18 11:15 MPV 8.6 fl (7.5-11.1) 09/27/18 11:15 Sodium 137 mmol/L (136-145) 09/27/18 11:15 Potassium 4.1 mmol/L (3.5-5.1) 09/27/18 11:15 Chloride 98 mmol/L (98-107) 09/27/18 11:15 Carbon Dioxide 33 mmol/L (21-32) H 09/27/18 11:15 Anion Gap 6 MMOL/L (8-16) L 09/27/18 11:15 BUN 11 mg/dL (7-18) 09/27/18 11:15 Creatinine 1.0 mg/dL (0.55-1.3) 09/27/18 11:15 Creat Clearance w eGFR 89.63 (>60) 09/27/18 11:15 Random Glucose 76 mg/dL (74-106) 09/27/18 11:15 Calcium 8.8 mg/dL (8.5-10.1) 09/27/18 11:15 Total Bilirubin 0.2 mg/dL (0.2-1) 09/27/18 11:15 AST 16 U/L (15-37) 09/27/18 11:15 ALT 30 U/L (13-61) 09/27/18 11:15 Alkaline Phosphatase 64 U/L (45-117) 09/27/18 11:15 Total Protein 7.8 g/dl (6.4-8.2) 09/27/18 11:15 Albumin 4.2 g/dl (3.4-5.0) 09/27/18 11:15 Urine Color Yellow 09/27/18 12:40 Urine Appearance Clear 09/27/18 12:40 Urine pH 5.0 (5.0-8.0) 09/27/18 12:40 Ur Specific [place] 1.024 (1.010-1.035) 09/27/18 12:40 Urine Protein Negative (NEGATIVE) 09/27/18 12:40 Urine Glucose (UA) Negative (NEGATIVE) 09/27/18 12:40 Urine Ketones Negative (NEGATIVE) 09/27/18 12:40 Urine Blood Negative (NEGATIVE) 09/27/18 12:40 Urine Nitrite Negative (NEGATIVE) 09/27/18 12:40 Urine Bilirubin Negative (NEGATIVE) 09/27/18 12:40 Urine Urobilinogen 0.2 mg/dL (0.2-1.0) 09/27/18 12:40 Ur Leukocyte Esterase Negative (NEGATIVE) 09/27/18 12:40 RPR Titer Nonreactive (NONREACTIVE) 09/27/18 11:15 lab noted - Treatment Hospital Course: Detox Protocol Followed, Detoxed Safely, Responded well, Discharged Condition Good, Rehab Referral Accepted Patient has Accepted a Rehab Referral to: [facility] - Medication Discharge Medications: Ambulatory Orders Dorzolamide HCl/Timolol Maleat [Cosopt Eye Drops] 1 drop OS BID 12/11/17 - Diagnosis (1) Alcohol dependence with uncomplicated withdrawal Status: Acute (2) Nicotine dependence Status: Acute Qualifiers: Nicotine product type: cigarettes Substance use status: in withdrawal Qualified Code(s): F17.213 - Nicotine dependence, cigarettes, with withdrawal (3) Opioid dependence with withdrawal Status: Acute (4) Blindness of left eye Status: Chronic (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
== END 2018-10-01 09:45 | disposition home or self-care (01) | DRG 773 ==
LOC: YASAS 08:51 → Y3N 10:56
PROVIDERS: ADMIT Surgery; ATTEND Surgery
PROC: HZ2ZZZZ Detoxification Services for Substance Abuse Treatment (ICD-10-PCS; principal; 2018-09-27)
DX: F10.230 Alcohol dependence with withdrawal, uncomplicated (principal); F11.23 Opioid dependence with withdrawal; F17.213 Nicotine dependence, cigarettes, with withdrawal; H54.62 Unqualified visual loss, left eye, normal vision right eye; H40.50X0 Glaucoma secondary to other eye disorders, unspecified eye, stage unspecified
CPT/HCPCS: 36415; 80053; 81003; 85027; 86593; J0735

== ENCOUNTER 2019-08-02 21:14 | Inpatient (IN) | payer OTHER ==
--- NOTE | 2019-08-02 21:41 | HP ---
COWS - Scale Resting Pulse: 1= [place] 81-100 Sweatin= Beads of Sweat on Face Restless Observation: 1= Difficult to Sit Still Pupil Size: 1= Pupils >than Normal Bone or Joint Aches: 4=Acute Joint/Muscle Pain Runny Nose/ Eye Tearin= Nasal Congestion GI Upset > 30mins: 0= None Tremor Observation: 2= Slight Tremor Visible Yawning Observation: 1= 1-2x During Session Anxiety or Irritability: 4=Extreme Anxiety Goose Flesh Skin: 3=Piloerection COWS Score: 21 CIWA Score Nausea/Vomitin-No Nausea/No Vomiting Muscle Tremors: 3 Anxiety: 4-Mod. Anxious/Guarded Agitation: 3 Paroxysmal Sweats: 4-Forehead w/Sweat Beads Orientation: 0-Oriented Tacttile Disturbances: 2-Mild Itch/Numbness/Burn Auditory Disturbances: 0-None Visual Disturbances: 0-None Headache: 2-Mild CIWA-Ar Total Score: 18 - Admission Criteria [facility] Guidelines: Admission for Medically Managed Detox: Requires at least one of the followin. CIWA greater than 12 2. Seizures within the past 24 hours 3. Delirium tremens within the past 24 hours 4. Hallucinations within the past 24 hours 5. Acute intervention needed for co occurring medical disorder 6. Acute intervention needed for co occurring psychiatric disorder 7. Severe withdrawal that cannot be handled at a lower level of care (continued vomiting, continued diarrhea, abnormal vital signs) requiring intravenous medication and/or fluids 8. Patient presents the following: CIWA greater than 12 Admission Criteria Met: Admission criteria met Admitting History and Physical - Smoking History Smoking history: Current every day smoker Have you smoked in the past 12 months: No Aproximately how many cigarettes per day: 10 - Alcohol/Substance Use Hx Alcohol Use: Yes Admission ROS [facility] Chief Complaint: c/o withdrawal sx's Allergies/Adverse Reactions: Allergies Allergy/AdvReac Type Severity Reaction Status Date / Time No Known Allergies Allergy Verified 08/02/19 21:46 History of Present Illness: HERE FOR HEROIN/ XANAX DETOX. CLIENT IS REFERRED BY [facility] SPONSOR. KNOWN TO PROGRAM. LAST HERE 09/2018. CLIENT REPORT HE HAS BEEN CLEAN SINCE RELAPSING 2 MONTHS AGO. REPORTS DAILY USE OF HEROIN AND XANAX APPROX QOD. LAST USE EARLIER TODAY. DENIES IVDU, BLACKOUTS, SEIZURE D/O. DOES REPORTS HX/O DRUG OVERDOSE X 1. 2 YEARS AGO. LIVES W/ FAMILY/ EMPLOYED, DENIES LEGALS. Exam Limitations: Physical Impairment (LEFT EYE BLINDNESS 2/2 GLAUCOMA) - Ebola screening Have you traveled outside of the country in the last 21 days: No Have you had contact with anyone from an Ebola affected area: No Have you been sick,other than usual withdrawal symptoms: No Do you have a fever: No - Review of Systems Constitutional: Chills, Malaise, Night Sweats, Changes in sleep EENT: reports: Blurred Vision (LEFT EYE BLINDNESS 2/2 GLAUCOMA), Nose Congestion , Other (GLASSES) Respiratory: reports: No Symptoms reported Cardiac: reports: No Symptoms Reported GI: reports: Poor Fluid Intake : reports: No Symptoms Reported Musculoskeletal: reports: Joint Pain, Other (RLS) Integumentary: reports: Flushing, Sweating Neuro: reports: Headache, Tremors, Other (BLACK OUTS, LAST 2 WEEKS AGO) Endocrine: reports: No Symptoms Reported Hematology: reports: No Symptoms Reported Psychiatric: reports: Agitated (IRRITBALE), Anxious Other Systems: Reviewed and Negative Patient History - Patient Medical History Hx Anemia: No Hx Asthma: No Hx Chronic Obstructive Pulmonary Disease (COPD): No Hx Cancer: No Hx Cardiac Disorders: No Hx Congestive Heart Failure: No Hx Hypertension: No Hx Hypercholesterolemia: No Hx Pacemaker: No HX Cerebrovascular Accident: No Hx Seizures: No Hx Dementia: No Hx Diabetes: No Hx Gastrointestinal Disorders: Yes (GERD- ZANTAC) Hx Liver Disease: Yes (ELEVATED LIVER ENZYMES) Hx Genitourinary Disorders: No Hx Sexually Transmitted Disorders: No Hx Renal Disease (ESRD): No Hx Thyroid Disease: No Hx Human Immunodeficiency Virus (HIV): No (last 05/07 negative) Hx Hepatitis C: No Hx Depression: No Hx Suicide Attempt: No Hx Bipolar Disorder: No Hx Schizophrenia: No Other Medical History: DENIES - Patient Surgical History Past Surgical History: Yes Hx Neurologic Surgery: No Hx Cataract Extraction: Yes (had this at age- born with cataracts legally blindness left) Hx Cardiac Surgery: No Hx Lung Surgery: No Hx Breast Surgery: No Hx Breast Biopsy: No Hx Abdominal Surgery: No Hx Appendectomy: No Hx Cholecystectomy: No Hx Genitourinary Surgery: No Hx Section: No Hx Orthopedic Surgery: No Other Surgical History: blindness of left eye,since Anesthesia Reaction: No - PPD History Previous Implant?: Yes Documented Results: Negative w/proof Implanted On Prior [facility] Admission?: Yes Date: 09/29/18 Results: 0MM PPD to be Administered?: No - Smoking Cessation Smoking history: Current every day smoker Have you smoked in the past 12 months: No Aproximately how many cigarettes per day: 20 Cigars Per Day: 0 Hx Chewing Tobacco Use: No Initiated information on smoking cessation: Yes 'Breaking Loose' booklet given: 08/02/19 - Substance & Tx. History Hx Alcohol Use: No Hx Substance Use: Yes Substance Use Type: Heroin, Tranquilizers (XANAX) Hx Substance Use Treatment: Yes ([facility]) - Substances abused Alprazolam (Xanax) Substance route: Oral Frequency: 3-6 times per week (5X WK) Amount used: 5/2MG Age of first use: 26 Date of last use: 08/01/19 Heroin Other (specify): SNIFF Frequency: Daily Amount used: 20BAGS Age of first use: 22 Date of last use: 08/02/19 (1 BAG) Admission Physical Exam [facility] - Physical General Appearance: Yes: Moderate Distress, Tremorous (FELT), Irritable, Anxious , Other (LEFT EYE IRREGULAR PUPIL NON REACTIVE) HEENTM: Yes: EOMI (RIGHT EYE), Normocephalic, LOGAN (RIGHT EYE), Pharynx Normal, Nasal Congestion Respiratory: Yes: Chest Non-Tender, Lungs Clear, Normal Breath Sounds, No Respiratory Distress, No Accessory Muscle Use Neck: Yes: No masses,lesions,Nodules, Supple, Trachea in good position Breast: Yes: Breasts Symetrical Cardiology: Yes: Regular Rhythm, Regular Rate, S1, S2 Abdominal: Yes: Normal Bowel Sounds, Non Tender, Soft Genitourinary: Yes: Within Normal Limits Back: Yes: Normal Inspection Musculoskeletal: Yes: full range of Motion, Gait Steady Extremities: Yes: Normal Capillary Refill, Normal Range of Motion, Non-Tender, Tremors (FELT) Neurological: Yes: Fully Oriented, Alert, Motor Strength 5/5 Integumentary: Yes: Clammy Lymphatic: Yes: Within Normal Limits - Diagnostic (1) Sedative, hypnotic or anxiolytic dependence with withdrawal, uncomplicated Current Visit: Yes Status: Acute (2) GERD (gastroesophageal reflux disease) Current Visit: Yes Status: Chronic Qualifiers: Esophagitis presence: esophagitis presence not specified Qualified Code(s) : K21.9 - Gastro-esophageal reflux disease without esophagitis (3) Nicotine dependence Current Visit: Yes Status: Chronic Qualifiers: Nicotine product type: cigarettes Substance use status: in withdrawal Qualified Code(s): F17.213 - Nicotine dependence, cigarettes, with withdrawal (4) Opioid dependence with withdrawal Current Visit: Yes Status: Acute (5) Blindness of left eye Current Visit: Yes Status: Chronic Comment: after cataract extraction and not able to replace lens as a child (6) Glaucoma associated with anomalies of iris Current Visit: Yes Status: Chronic Comment: pt states now has mild glaucoma , after cataract extraction as child Cleared for Admission S - Detox or Rehab [facility] Level of Care: Medically Managed Detox Regimen/Protocol: Methadone/Valium Claeared for Rehab Admission: No Urine Drug Screen - Test Device Lot number: [id number] Expiration date: 05/19/20 - Control Is test valid?: Yes - Results Drug screen NEGATIVE: No Urine drug screen results: MET-Methamphetamine, FEN-Fentanyl, MOP-Opiates, MTD- Methadone Inpatient Rehab Admission - Rehab Decision to Admit Inpatient rehab admission?: No
[2019-08-02 21:47] VITALS: BMI 25.0
[2019-08-02] MEDS ORDERED: cloNIDine HCL 0.1 MG TABLET PO PRN (21:50)
[2019-08-02] MEDS ORDERED: guaiFENesin 200 MG/10 ML 10 ML UNIT-DOSE CUPS PO PRN (21:50)
[2019-08-02] MEDS ORDERED: P-EPHED 60MG/TRIPROLIDI 2.5MG TABLET PO PRN (21:50)
[2019-08-02] MEDS ORDERED: IBUPROFEN 400 MG TABLET (FP) PO PRN (21:50)
[2019-08-02] MEDS ORDERED: MAGNESIUM HYDROX 2400MG/30ML ORAL SUSPENSION 30 ML CUP PO PRN (21:50)
[2019-08-02] MEDS ORDERED: NALOXONE HCL 0.4 MG/ML VIAL IM PRN (21:50)
[2019-08-02] MEDS ORDERED: ONDANSETRON *ODT* 4 MG TABLET SL PRN (21:50)
[2019-08-02] MEDS ORDERED: MAG HYDROX/AL HYDROX/SIMETH 30 ML UNIT-DOSE CUP PO PRN (21:50)
[2019-08-02] MEDS ORDERED: MAGNESIUM CITRATE 300 ML BOTTLE PO PRN (21:50)
[2019-08-02] MEDS ORDERED: ACETAMINOPHEN 325 MG TABLET (FP) PO PRN ×2 (21:50)
[2019-08-02] MEDS ORDERED: BISMUTH SUBSALICYLATE 524 MG/30 ML UD PO PRN (21:50)
[2019-08-02] MEDS ORDERED: MENTHOL/PHENOL 1 EACH UD MM PRN (21:50)
[2019-08-02] MEDS ORDERED: METHOCARBAMOL 500 MG TABLET PO PRN (21:50)
[2019-08-02] MEDS ORDERED: NICOTINE POLACRILEX 2 MG GUM BUC PRN (21:50)
[2019-08-02] MEDS ORDERED: hydrOXYzine PAMOATE 25 MG CAPSULE (FP) PO PRN (21:50)
[2019-08-02] MEDS ORDERED: DICYCLOMINE HCL 10 MG CAPSULE PO PRN (21:50)
[2019-08-02] MEDS ORDERED: PATIENT'S OWN MEDICATION (NON-FORMULARY) (Dorzolamide Hcl/Timolol Maleat [Cosopt Eye Drops OS SCH (22:00)
[2019-08-02] MEDS ORDERED: METHADONE HCL 10 MG TABLET (FOR DETOX USE ONLY) PO ONE (22:30)
[2019-08-02] MEDS: FAMOTIDINE 20 MG TABLET PO SCH (23:09)
[2019-08-02] MEDS: THIAMINE HCL 100 MG TABLET (FP) PO SCH (23:09)
[2019-08-02] MEDS: diazePAM 5 MG TABLET PO SCH (23:10)
[2019-08-02] MEDS: DORZOLAMIDE 2% HCL OPHTHALMIC SOLUTION 10 ML BOTTLE OS SCH (23:17)
[2019-08-02] MEDS: TIMOLOL 0.5% OPHTHALMIC SOL 5 ML BOTTLE OS SCH (23:17)
[2019-08-03] MEDS: diazePAM 5 MG TABLET PO PRN ×3 (02:19→18:05)
[2019-08-03] MEDS: diazePAM 5 MG TABLET PO SCH ×3 (07:34→22:54)
[2019-08-03 09:51] LABS: HEMATOCRIT 40.8 % (35.4-49); MCH 29.3 pg (25.7-33.7); MCHC 34.3 g/dl (32.0-35.9); MEAN CELL VOLUME 85.5 fl (80-96); MEAN PLT VOLUME 9.2 fl (7.5-11.1); PLATELET COUNT 231 K/MM3 (134-434); RBC 4.77 M/mm3 (4.00-5.60); RDW 13.7 % (11.9-15.9); WHITE BLOOD COUNT 6.4 K/mm3 (4.0-10.0)
[2019-08-03] MEDS ORDERED: METHADONE HCL 10 MG TABLET (FOR DETOX USE ONLY) ONE (09:53)
[2019-08-03] MEDS ORDERED: METHADONE HCL 5 MG TABLET (FOR DETOX USE ONLY) ONE (09:54)
[2019-08-03] MEDS ORDERED: METHADONE (DETOX) 20 MG, METHADONE (DETOX) 5 MG PO ONE (10:00)
[2019-08-03 10:07] LABS: ALBUMIN 3.5 g/dl (3.4-5.0); BILIRUBIN,TOTAL 0.3 mg/dL (0.2-1); CALCIUM 8.4 mg/dL (8.5-10.1); CREATININE 0.8 mg/dL (0.55-1.3); POTASSIUM 4.1 mmol/L (3.5-5.1); TOT PROT 6.5 g/dl (6.4-8.2)
[2019-08-03] MEDS: FAMOTIDINE 20 MG TABLET PO SCH ×2 (10:54→22:54)
[2019-08-03] MEDS: NICOTINE 21 MG/24 HOURS TOPICAL PATCH TD SCH (10:55)
[2019-08-03] MEDS: DORZOLAMIDE 2% HCL OPHTHALMIC SOLUTION 10 ML BOTTLE OS SCH ×2 (10:56→22:54)
[2019-08-03] MEDS: TIMOLOL 0.5% OPHTHALMIC SOL 5 ML BOTTLE OS SCH ×2 (10:56→22:54)
[2019-08-03] MEDS: PRENATAL VITAMINS W/ FOLIC ACID TABLET (FP) PO SCH (10:59)
--- NOTE | 2019-08-03 12:11 | EKG ---
Test Reason : Blood Pressure : / mmHG Vent. Rate : 054 BPM Atrial Rate : 054 BPM P-R Int : 134 ms QRS Dur : 098 ms QT Int : 410 ms P-R-T Axes : 005 051 025 degrees QTc Int : 388 ms SINUS BRADYCARDIA WHEN COMPARED WITH ECG OF 11-DEC-2017 12:01, NO SIGNIFICANT CHANGE WAS FOUND Confirmed by NERI HILARIO MD ([id number]) on 08/03/2019 12:11:10 PM Referred By: Fernie Espana Confirmed By:NERI HILARIO MD
--- NOTE | 2019-08-03 14:37 | PN ---
S CIWA - CIWA Score Nausea/Vomitin Muscle Tremors: 2 Anxiety: 2 Agitation: 2 Paroxysmal Sweats: No Perspiration Orientation: 0-Oriented Tacttile Disturbances: 1-Very Mild Itch/Numbness Auditory Disturbances: 0-None Visual Disturbances: 0-None Headache: 1-Very Mild CIWA-Ar Total Score: 10 BHS COWS - Scale Resting Pulse: 0= [place] 80 or Below Sweatin= No chills or Flushing Restless Observation: 0= Sits Still Pupil Size: 1= Pupils >than Normal Bone or Joint Aches: 1= Mild Discomfort Runny Nose/ Eye Tearin= Nasal Congestion GI Upset > 30mins: 1= Stomach Cramp Tremor Observation of Outstretched Hands: 1= Tremor [place], Not Seen Yawning Observation: 1= 1-2x During Session Anxiety or Irritability: 2=Irritable/Anxious Goose Flesh Skin: 0=Smooth Skin COWS Score: 8 BHS Progress Note (SOAP) Subjective: alert,irritable,anxious,interrupted sleep Objective: 08/03/19 14:35 Vital Signs Temperature 97.3 F L 08/03/19 13:07 Pulse Rate 43 L 08/03/19 13:07 Respiratory Rate 18 08/03/19 13:07 Blood Pressure 109/51 L 08/03/19 13:07 O2 Sat by Pulse Oximetry (%) 08/03/19 14:35 Laboratory Last Values WBC 6.4 K/mm3 (4.0-10.0) 08/03/19 07:25 RBC 4.77 M/mm3 (4.00-5.60) 08/03/19 07:25 Hgb 14.0 GM/dL (11.7-16.9) 08/03/19 07:25 Hct 40.8 % (35.4-49) 08/03/19 07:25 MCV 85.5 fl (80-96) 08/03/19 07:25 MCH 29.3 pg (25.7-33.7) 08/03/19 07:25 MCHC 34.3 g/dl (32.0-35.9) 08/03/19 07:25 RDW 13.7 % (11.9-15.9) 08/03/19 07:25 Plt Count 231 K/MM3 (134-434) D 08/03/19 07:25 MPV 9.2 fl (7.5-11.1) 08/03/19 07:25 Sodium 139 mmol/L (136-145) 08/03/19 07:25 Potassium 4.1 mmol/L (3.5-5.1) 08/03/19 07:25 Chloride 105 mmol/L (98-107) 08/03/19 07:25 Carbon Dioxide 28 mmol/L (21-32) 08/03/19 07:25 Anion Gap 6 MMOL/L (8-16) L 08/03/19 07:25 BUN 22.0 mg/dL (7-18) H 08/03/19 07:25 Creatinine 0.8 mg/dL (0.55-1.3) 08/03/19 07:25 Est GFR (CKD-EPI)AfAm 140.90 08/03/19 07:25 Est GFR (CKD-EPI)NonAf 121.57 08/03/19 07:25 Random Glucose 108 mg/dL (74-106) H 08/03/19 07:25 Calcium 8.4 mg/dL (8.5-10.1) L 08/03/19 07:25 Total Bilirubin 0.3 mg/dL (0.2-1) 08/03/19 07:25 AST 20 U/L (15-37) 08/03/19 07:25 ALT 30 U/L (13-61) 08/03/19 07:25 Alkaline Phosphatase 48 U/L (45-117) 08/03/19 07:25 Total Protein 6.5 g/dl (6.4-8.2) 08/03/19 07:25 Albumin 3.5 g/dl (3.4-5.0) 08/03/19 07:25 RPR Titer Nonreactive (NONREACTIVE) 08/03/19 07:25 Assessment: 08/03/19 14:36 withdrawal symptom Plan: continue detox methadone and valium regimen,encourage oral fluid
[2019-08-03] MEDS: THIAMINE HCL 100 MG TABLET (FP) PO SCH (22:53)
[2019-08-04] MEDS: diazePAM 5 MG TABLET PO SCH ×2 (06:06→18:05)
[2019-08-04] MEDS ORDERED: METHADONE HCL 10 MG TABLET (FOR DETOX USE ONLY) PO ONE (10:00)
[2019-08-04] MEDS: NICOTINE 21 MG/24 HOURS TOPICAL PATCH TD SCH (10:28)
[2019-08-04] MEDS: PRENATAL VITAMINS W/ FOLIC ACID TABLET (FP) PO SCH (10:28)
[2019-08-04] MEDS: TIMOLOL 0.5% OPHTHALMIC SOL 5 ML BOTTLE OS SCH ×2 (10:28→22:14)
[2019-08-04] MEDS: FAMOTIDINE 20 MG TABLET PO SCH ×2 (10:28→22:14)
[2019-08-04] MEDS: DORZOLAMIDE 2% HCL OPHTHALMIC SOLUTION 10 ML BOTTLE OS SCH ×2 (10:29→22:14)
[2019-08-04] MEDS: diazePAM 5 MG TABLET PO PRN ×3 (10:30→22:16)
--- NOTE | 2019-08-04 11:50 | PN ---
S CIWA - CIWA Score Nausea/Vomitin-No Nausea/No Vomiting Muscle Tremors: None Anxiety: 3 Agitation: 0-Normal Activity Paroxysmal Sweats: 3 Orientation: 0-Oriented Tacttile Disturbances: 0-None Auditory Disturbances: 0-None Visual Disturbances: 0-None Headache: 2-Mild CIWA-Ar Total Score: 8 BHS COWS - Scale Resting Pulse: 0= [place] 80 or Below Sweatin= Chills/Flushing Restless Observation: 1= Difficult to Sit Still Pupil Size: 0= Normal to Room Light Bone or Joint Aches: 2= Severe Diffuse Aches Runny Nose/ Eye Tearin= None GI Upset > 30mins: 0= None Tremor Observation of Outstretched Hands: 0= None Yawning Observation: 1= 1-2x During Session Anxiety or Irritability: 2=Irritable/Anxious Goose Flesh Skin: 0=Smooth Skin COWS Score: 7 BHS Progress Note (SOAP) Subjective: c/o sweats, anxiety, muscle aches, and headache. Objective: 08/04/19 11:48 Vital Signs 08/04/19 08/04/19 05:36 08:56 Temperature 97.7 F 98.4 F Pulse Rate 63 53 L Respiratory 18 16 Rate Blood Pressure 110/59 L 134/70 Laboratory Last Values WBC 6.4 K/mm3 (4.0-10.0) 08/03/19 07:25 RBC 4.77 M/mm3 (4.00-5.60) 08/03/19 07:25 Hgb 14.0 GM/dL (11.7-16.9) 08/03/19 07:25 Hct 40.8 % (35.4-49) 08/03/19 07:25 MCV 85.5 fl (80-96) 08/03/19 07:25 MCH 29.3 pg (25.7-33.7) 08/03/19 07:25 MCHC 34.3 g/dl (32.0-35.9) 08/03/19 07:25 RDW 13.7 % (11.9-15.9) 08/03/19 07:25 Plt Count 231 K/MM3 (134-434) D 08/03/19 07:25 MPV 9.2 fl (7.5-11.1) 08/03/19 07:25 Sodium 139 mmol/L (136-145) 08/03/19 07:25 Potassium 4.1 mmol/L (3.5-5.1) 08/03/19 07:25 Chloride 105 mmol/L (98-107) 08/03/19 07:25 Carbon Dioxide 28 mmol/L (21-32) 08/03/19 07:25 Anion Gap 6 MMOL/L (8-16) L 08/03/19 07:25 BUN 22.0 mg/dL (7-18) H 08/03/19 07:25 Creatinine 0.8 mg/dL (0.55-1.3) 08/03/19 07:25 Est GFR (CKD-EPI)AfAm 140.90 08/03/19 07:25 Est GFR (CKD-EPI)NonAf 121.57 08/03/19 07:25 Random Glucose 108 mg/dL (74-106) H 08/03/19 07:25 Calcium 8.4 mg/dL (8.5-10.1) L 08/03/19 07:25 Total Bilirubin 0.3 mg/dL (0.2-1) 08/03/19 07:25 AST 20 U/L (15-37) 08/03/19 07:25 ALT 30 U/L (13-61) 08/03/19 07:25 Alkaline Phosphatase 48 U/L (45-117) 08/03/19 07:25 Total Protein 6.5 g/dl (6.4-8.2) 08/03/19 07:25 Albumin 3.5 g/dl (3.4-5.0) 08/03/19 07:25 RPR Titer Nonreactive (NONREACTIVE) 08/03/19 07:25 Labs noted. Assessment: AOX3, in no acute respiratory distress. Full ROM, ambulating in the unit. Withdrawal symptoms. Plan: continue detox.
[2019-08-04] MEDS: THIAMINE HCL 100 MG TABLET (FP) PO SCH (22:14)
[2019-08-04] MEDS: MELATONIN 5 MG TABLETS PO PRN (22:17)
[2019-08-05] MEDS: diazePAM 5 MG TABLET PO PRN ×3 (02:49→17:27)
[2019-08-05] MEDS ORDERED: diazePAM 5 MG TABLET PO ONE (06:00)
[2019-08-05] MEDS ORDERED: METHADONE HCL 10 MG TABLET (FOR DETOX USE ONLY) ONE (09:39)
[2019-08-05] MEDS ORDERED: METHADONE HCL 5 MG TABLET (FOR DETOX USE ONLY) ONE (09:40)
[2019-08-05] MEDS ORDERED: METHADONE (DETOX) 10 MG, METHADONE (DETOX) 5 MG PO ONE (10:00)
[2019-08-05] MEDS: FAMOTIDINE 20 MG TABLET PO SCH ×2 (10:05→22:30)
[2019-08-05] MEDS: DORZOLAMIDE 2% HCL OPHTHALMIC SOLUTION 10 ML BOTTLE OS SCH ×2 (10:05→22:31)
[2019-08-05] MEDS: TIMOLOL 0.5% OPHTHALMIC SOL 5 ML BOTTLE OS SCH ×2 (10:05→22:30)
[2019-08-05] MEDS: PRENATAL VITAMINS W/ FOLIC ACID TABLET (FP) PO SCH (10:05)
[2019-08-05] MEDS: NICOTINE 21 MG/24 HOURS TOPICAL PATCH TD SCH (10:07)
--- NOTE | 2019-08-05 11:10 | PN ---
S CIWA - CIWA Score Nausea/Vomitin-No Nausea/No Vomiting Muscle Tremors: 2 Anxiety: 2 Agitation: 0-Normal Activity Paroxysmal Sweats: 2 Orientation: 0-Oriented Tacttile Disturbances: 0-None Auditory Disturbances: 0-None Visual Disturbances: 0-None Headache: 0-None Present CIWA-Ar Total Score: 6 BHS COWS - Scale Resting Pulse: 0= [place] 80 or Below Sweatin= Chills/Flushing Restless Observation: 0= Sits Still Pupil Size: 0= Normal to Room Light Bone or Joint Aches: 1= Mild Discomfort Runny Nose/ Eye Tearin= Nasal Congestion GI Upset > 30mins: 0= None Tremor Observation of Outstretched Hands: 2= Slight Tremor Visible Yawning Observation: 0= None Anxiety or Irritability: 1=Feels Anxious/Irritable Goose Flesh Skin: 0=Smooth Skin COWS Score: 6 S Progress Note (SOAP) Subjective: 29 years old male admitted on 08/02/19 for benzo and opiate withdrawal sx management treating with valium and methadone detox regimnents feeling ok today ambulating on hallway request ensure encourage to provide ensure as per ordered Objective: 08/05/19 11:10 Vital Signs Temperature 98.6 F 08/05/19 09:06 Pulse Rate 73 08/05/19 09:06 Respiratory Rate 18 08/05/19 09:06 Blood Pressure 124/80 08/05/19 09:06 O2 Sat by Pulse Oximetry (%) Laboratory Last Values WBC 6.4 K/mm3 (4.0-10.0) 08/03/19 07:25 RBC 4.77 M/mm3 (4.00-5.60) 08/03/19 07:25 Hgb 14.0 GM/dL (11.7-16.9) 08/03/19 07:25 Hct 40.8 % (35.4-49) 08/03/19 07:25 MCV 85.5 fl (80-96) 08/03/19 07:25 MCH 29.3 pg (25.7-33.7) 08/03/19 07:25 MCHC 34.3 g/dl (32.0-35.9) 08/03/19 07:25 RDW 13.7 % (11.9-15.9) 08/03/19 07:25 Plt Count 231 K/MM3 (134-434) D 08/03/19 07:25 MPV 9.2 fl (7.5-11.1) 08/03/19 07:25 Sodium 139 mmol/L (136-145) 08/03/19 07:25 Potassium 4.1 mmol/L (3.5-5.1) 08/03/19 07:25 Chloride 105 mmol/L (98-107) 08/03/19 07:25 Carbon Dioxide 28 mmol/L (21-32) 08/03/19 07:25 Anion Gap 6 MMOL/L (8-16) L 08/03/19 07:25 BUN 22.0 mg/dL (7-18) H 08/03/19 07:25 Creatinine 0.8 mg/dL (0.55-1.3) 08/03/19 07:25 Est GFR (CKD-EPI)AfAm 140.90 08/03/19 07:25 Est GFR (CKD-EPI)NonAf 121.57 08/03/19 07:25 Random Glucose 108 mg/dL (74-106) H 08/03/19 07:25 Calcium 8.4 mg/dL (8.5-10.1) L 08/03/19 07:25 Total Bilirubin 0.3 mg/dL (0.2-1) 08/03/19 07:25 AST 20 U/L (15-37) 08/03/19 07:25 ALT 30 U/L (13-61) 08/03/19 07:25 Alkaline Phosphatase 48 U/L (45-117) 08/03/19 07:25 Total Protein 6.5 g/dl (6.4-8.2) 08/03/19 07:25 Albumin 3.5 g/dl (3.4-5.0) 08/03/19 07:25 RPR Titer Nonreactive (NONREACTIVE) 08/03/19 07:25 lab noted Assessment: 08/05/19 11:10 benzo and opiate withdrawal Plan: valium and methadone regiments
[2019-08-05] MEDS: THIAMINE HCL 100 MG TABLET (FP) PO SCH (22:30)
[2019-08-05] MEDS: MELATONIN 5 MG TABLETS PO PRN (22:32)
[2019-08-06 09:15] VITALS: BP 108/69; PULSE 63; TEMP 98
[2019-08-06] MEDS: PRENATAL VITAMINS W/ FOLIC ACID TABLET (FP) PO SCH (09:53)
[2019-08-06] MEDS ORDERED: METHADONE HCL 10 MG TABLET (FOR DETOX USE ONLY) PO ONE (10:00)
--- NOTE | 2019-08-06 11:18 | DS ---
[facility] Detox Discharge Summary Admission Date: 08/02/19 Discharge Date: 08/06/19 - History Present History: Opioid Dependence, Sedative Dependence Additional Comments: 29 years old male admitted on 08/02/19 for benzo and opiate withdrawal sx management treated with valium and methadone detox regiments Mr Burciaga prefers to leave the detox unit today "I have to go back to work" patient is alert oriented x 3 speech clearly coherently ambulating steady gait respiratory clear lungs bilaterally on auscultation abdomen soft non rebound tendernes extremities full range of motion Pertinent Past History: time for discharge 35 minutes - Physical Exam Results Vital Signs: Vital Signs Temperature 98 F 08/06/19 08:48 Pulse Rate 63 08/06/19 08:48 Respiratory Rate 20 08/06/19 08:48 Blood Pressure 108/69 08/06/19 08:48 O2 Sat by Pulse Oximetry (%) Pertinent Admission Physical Exam Findings: benzo and opiate withdrawal Laboratory Last Values WBC 6.4 K/mm3 (4.0-10.0) 08/03/19 07:25 RBC 4.77 M/mm3 (4.00-5.60) 08/03/19 07:25 Hgb 14.0 GM/dL (11.7-16.9) 08/03/19 07:25 Hct 40.8 % (35.4-49) 08/03/19 07:25 MCV 85.5 fl (80-96) 08/03/19 07:25 MCH 29.3 pg (25.7-33.7) 08/03/19 07:25 MCHC 34.3 g/dl (32.0-35.9) 08/03/19 07:25 RDW 13.7 % (11.9-15.9) 08/03/19 07:25 Plt Count 231 K/MM3 (134-434) D 08/03/19 07:25 MPV 9.2 fl (7.5-11.1) 08/03/19 07:25 Sodium 139 mmol/L (136-145) 08/03/19 07:25 Potassium 4.1 mmol/L (3.5-5.1) 08/03/19 07:25 Chloride 105 mmol/L (98-107) 08/03/19 07:25 Carbon Dioxide 28 mmol/L (21-32) 08/03/19 07:25 Anion Gap 6 MMOL/L (8-16) L 08/03/19 07:25 BUN 22.0 mg/dL (7-18) H 08/03/19 07:25 Creatinine 0.8 mg/dL (0.55-1.3) 08/03/19 07:25 Est GFR (CKD-EPI)AfAm 140.90 08/03/19 07:25 Est GFR (CKD-EPI)NonAf 121.57 08/03/19 07:25 Random Glucose 108 mg/dL (74-106) H 08/03/19 07:25 Calcium 8.4 mg/dL (8.5-10.1) L 08/03/19 07:25 Total Bilirubin 0.3 mg/dL (0.2-1) 08/03/19 07:25 AST 20 U/L (15-37) 08/03/19 07:25 ALT 30 U/L (13-61) 08/03/19 07:25 Alkaline Phosphatase 48 U/L (45-117) 08/03/19 07:25 Total Protein 6.5 g/dl (6.4-8.2) 08/03/19 07:25 Albumin 3.5 g/dl (3.4-5.0) 08/03/19 07:25 RPR Titer Nonreactive (NONREACTIVE) 08/03/19 07:25 Vital Signs Temperature 98 F 08/06/19 08:48 Pulse Rate 63 08/06/19 08:48 Respiratory Rate 20 08/06/19 08:48 Blood Pressure 108/69 08/06/19 08:48 O2 Sat by Pulse Oximetry (%) lab noted - Treatment Hospital Course: Detox Protocol Followed, Detoxed Safely, Responded well, Discharged Condition Good, Rehab Referral Accepted Patient [facility] Accepted [facility] - Medication Discharge Medications: Ambulatory Orders Dorzolamide HCl/Timolol Maleat [Cosopt Eye Drops] 1 drop OS BID 12/11/17 Ranitidine HCl [Zantac] 150 mg PO BID 08/02/19 Naloxone HCl [Narcan] 4 mg NS ASDIR PRN #1 spray 08/06/19 - Diagnosis (1) Blindness of left eye Status: Chronic Qualifiers: Right eye visual impairment category: right - unspecified blindness Qualified Code(s): H54.3 - Unqualified visual loss, both eyes (2) Opioid dependence with withdrawal Status: Acute (3) Nicotine dependence Status: Acute Qualifiers: Nicotine product type: cigarettes Substance use status: in withdrawal Qualified Code(s): F17.213 - Nicotine dependence, cigarettes, with withdrawal (4) Sedative, hypnotic or anxiolytic dependence with withdrawal, uncomplicated Status: Acute (5) GERD (gastroesophageal reflux disease) Status: Chronic Qualifiers: Esophagitis presence: without esophagitis Qualified Code(s): K21.9 - Gastro -esophageal reflux disease without esophagitis - AMA Did Patient Leave Against Medical Advice: No CIWA Score - CIWA Score Nausea/Vomitin-No Nausea/No Vomiting Muscle Tremors: 1-None Visible, but [place] Anxiety: 1-Mildly Anxious Agitation: 0-Normal Activity Paroxysmal Sweats: 1-Minimal Palms Moist Orientation: 0-Oriented Tacttile Disturbances: 0-None Auditory Disturbances: 0-None Visual Disturbances: 0-None Headache: 0-None Present CIWA-Ar Total Score: 3 COWS (PN) - Opiate Withdrawal Resting Pulse: 0= [place] 80 or Below Sweatin= No chills or Flushing Restless Observation: 0= Sits Still Pupil Size: 0= Normal to Room Light Bone or Joint Aches: 1= Mild Discomfort Runny Nose/ Eye Tearin= None GI Upset > 30mins: 0= None Tremor Observation of Outstretched Hands: 1= Tremor [place], Not Seen Yawning Observation: 0= None Anxiety or Irritability: 1=Feels Anxious/Irritable Goose Flesh Skin: 0=Smooth Skin COWS Score: 3
[2019-08-07] MEDS ORDERED: METHADONE HCL 5 MG TABLET (FOR DETOX USE ONLY) PO ONE (06:00)
--- NOTE | 2019-08-09 14:22 | EKG ---
Test Reason : Blood Pressure : / mmHG Vent. Rate : 055 BPM Atrial Rate : 055 BPM P-R Int : 132 ms QRS Dur : 098 ms QT Int : 410 ms P-R-T Axes : 011 051 025 degrees QTc Int : 392 ms SINUS BRADYCARDIA OTHERWISE NORMAL ECG WHEN COMPARED WITH ECG OF 11-DEC-2017 12:01, NO SIGNIFICANT CHANGE WAS FOUND Confirmed by YOLANDA ROWLAND MD ([id number]) on 08/09/2019 2:22:20 PM Referred By: Fernie Espana Confirmed By:YOLANDA ROWLAND MD
== END 2019-08-06 11:03 | disposition home or self-care (01) | DRG 897 ==
LOC: YASAS 21:14 → Y3N 22:08
PROVIDERS: ADMIT Allergy & Immunology; ATTEND Allergy & Immunology
PROC: HZ2ZZZZ Detoxification Services for Substance Abuse Treatment (ICD-10-PCS; principal; 2019-08-02)
DX: F11.23 Opioid dependence with withdrawal (principal); F13.230 Sedative, hypnotic or anxiolytic dependence with withdrawal, uncomplicated; F17.213 Nicotine dependence, cigarettes, with withdrawal; K21.9 Gastro-esophageal reflux disease without esophagitis; H54.62 Unqualified visual loss, left eye, normal vision right eye; R94.5 Abnormal results of liver function studies; H40.50X0 Glaucoma secondary to other eye disorders, unspecified eye, stage unspecified
CPT/HCPCS: 36415; 80053; 85027; 86593; 93005; 93010; J0735

== ENCOUNTER 2020-09-12 13:49 | Inpatient (IN) | payer OTHER ==
[2020-09-12 15:23] VITALS: BMI 25.2
[2020-09-12] MEDS ORDERED: ACETAMINOPHEN 325 MG TABLET (FP) PO PRN ×3 (15:54→16:06)
[2020-09-12] MEDS ORDERED: MENTHOL/PHENOL 1 EACH UD MM PRN (15:54)
[2020-09-12] MEDS ORDERED: NALOXONE (NARCAN) HCL 4 MG/0.1 ML SPRAY NS PRN (15:54)
[2020-09-12] MEDS ORDERED: MAG HYDROX/AL HYDROX/SIMETH 30 ML UNIT-DOSE CUP PO PRN (15:54)
[2020-09-12] MEDS ORDERED: cloNIDine HCL 0.1 MG TABLET PO PRN (15:54)
[2020-09-12] MEDS ORDERED: IBUPROFEN 400 MG TABLET (FP) PO PRN (15:54)
[2020-09-12] MEDS ORDERED: BISMUTH SUBSALICYLATE 524 MG/30 ML UD PO PRN (15:54)
[2020-09-12] MEDS ORDERED: NICOTINE POLACRILEX 2 MG GUM BUC PRN (15:54)
[2020-09-12] MEDS ORDERED: MAGNESIUM HYDROX 2400MG/30ML ORAL SUSPENSION 30 ML CUP PO PRN (15:54)
[2020-09-12] MEDS ORDERED: LORazepam 1 MG TABLET PO PRN (15:54)
[2020-09-12] MEDS ORDERED: MAGNESIUM CITRATE 300 ML BOTTLE PO PRN (15:54)
[2020-09-12] MEDS ORDERED: METHOCARBAMOL 500 MG TABLET PO PRN (15:54)
[2020-09-12] MEDS ORDERED: ONDANSETRON *ODT* 4 MG TABLET SL PRN (15:54)
[2020-09-12] MEDS ORDERED: METHADONE HCL 10 MG TABLET (FOR DETOX USE ONLY) PO ONE (17:45)
[2020-09-12] MEDS: hydrOXYzine PAMOATE 25 MG CAPSULE (FP) PO SCH ×3 (19:48→23:02)
[2020-09-12] MEDS: LORazepam 2 MG TABLET PO SCH ×2 (19:50→22:57)
[2020-09-12] MEDS: NICOTINE 7 MG/24 HOURS TOPICAL PATCH TD SCH (20:01)
[2020-09-12] MEDS ORDERED: PATIENT'S OWN MEDICATION (NON-FORMULARY) (Dorzolamide Hcl/Timolol Maleat [Cosopt Eye Drops OS SCH (22:00)
[2020-09-12] MEDS: MELATONIN 5 MG TABLETS PO SCH (22:57)
[2020-09-12] MEDS: THIAMINE HCL 100 MG TABLET (FP) PO SCH (22:58)
[2020-09-12] MEDS: DORZOLAMIDE 2% HCL OPHTHALMIC SOLUTION 10 ML BOTTLE OS SCH (23:19)
[2020-09-12] MEDS: TIMOLOL 0.5% OPHTHALMIC SOL 5 ML BOTTLE OS SCH (23:19)
[2020-09-13] MEDS: LORazepam 2 MG TABLET PO SCH ×4 (08:25→22:40)
[2020-09-13] MEDS: hydrOXYzine PAMOATE 25 MG CAPSULE (FP) PO SCH ×5 (08:26→22:40)
[2020-09-13] MEDS ORDERED: METHADONE HCL 5 MG TABLET (FOR DETOX USE ONLY) ONE (09:18)
[2020-09-13] MEDS ORDERED: METHADONE HCL 10 MG TABLET (FOR DETOX USE ONLY) ONE (09:18)
[2020-09-13 09:56] LABS: HEMATOCRIT 39.1 % (35.4-49); HEMOGLOBIN 13.5 GM/dL (11.7-16.9); MCH 29.5 pg (25.7-33.7); MCHC 34.4 g/dl (32.0-35.9); MEAN CELL VOLUME 85.7 fl (80-96); MEAN PLT VOLUME 9.1 fl (7.5-11.1); PLATELET COUNT 233 K/MM3 (134-434); RBC 4.57 M/mm3 (4.00-5.60); RDW 13.4 % (11.9-15.9); WHITE BLOOD COUNT 7.2 K/mm3 (4.0-10.0)
[2020-09-13] MEDS ORDERED: METHADONE (DETOX) 20 MG, METHADONE (DETOX) 5 MG PO ONE (10:00)
[2020-09-13] MEDS: PRENATAL VITAMINS W/ FOLIC ACID TABLET (FP) PO SCH (11:27)
[2020-09-13] MEDS: NICOTINE 7 MG/24 HOURS TOPICAL PATCH TD SCH (11:28)
[2020-09-13 13:26] LABS: BILIRUBIN,TOTAL 0.2 mg/dL (0.2-1); BLOOD UREA NITROGEN 13.9 mg/dL (7-18); CALCIUM 8.5 mg/dL (8.5-10.1); CREATININE 0.8 mg/dL (0.55-1.3); POTASSIUM 3.9 mmol/L (3.5-5.1); TOT PROT 6.5 g/dl (6.4-8.2)
[2020-09-13] MEDS: DORZOLAMIDE 2% HCL OPHTHALMIC SOLUTION 10 ML BOTTLE OS SCH ×2 (13:34→22:41)
[2020-09-13] MEDS: TIMOLOL 0.5% OPHTHALMIC SOL 5 ML BOTTLE OS SCH ×2 (13:34→22:41)
[2020-09-13] MEDS: THIAMINE HCL 100 MG TABLET (FP) PO SCH (22:41)
[2020-09-13] MEDS: MELATONIN 5 MG TABLETS PO SCH (22:41)
[2020-09-14] MEDS: LORazepam 1 MG TABLET PO SCH ×4 (05:55→22:27)
[2020-09-14] MEDS: hydrOXYzine PAMOATE 25 MG CAPSULE (FP) PO SCH ×5 (05:55→22:27)
[2020-09-14] MEDS ORDERED: METHADONE HCL 10 MG TABLET (FOR DETOX USE ONLY) PO ONE (10:00)
[2020-09-14] MEDS: PRENATAL VITAMINS W/ FOLIC ACID TABLET (FP) PO SCH (11:01)
[2020-09-14] MEDS: TIMOLOL 0.5% OPHTHALMIC SOL 5 ML BOTTLE OS SCH ×2 (11:01→22:31)
[2020-09-14] MEDS: NICOTINE 7 MG/24 HOURS TOPICAL PATCH TD SCH (11:02)
[2020-09-14] MEDS: DORZOLAMIDE 2% HCL OPHTHALMIC SOLUTION 10 ML BOTTLE OS SCH ×2 (11:02→22:30)
[2020-09-14] MEDS: THIAMINE HCL 100 MG TABLET (FP) PO SCH (22:27)
[2020-09-14] MEDS: MELATONIN 5 MG TABLETS PO SCH (22:28)
[2020-09-15] MEDS ORDERED: LORazepam 0.5 MG TABLET PO PRN
[2020-09-15] MEDS: LORazepam 0.5 MG TABLET PO SCH ×2 (06:10→10:41)
[2020-09-15] MEDS: hydrOXYzine PAMOATE 25 MG CAPSULE (FP) PO SCH ×2 (06:11→10:43)
[2020-09-15] MEDS ORDERED: METHADONE HCL 5 MG TABLET (FOR DETOX USE ONLY) ONE (09:16)
[2020-09-15] MEDS ORDERED: METHADONE HCL 10 MG TABLET (FOR DETOX USE ONLY) ONE (09:16)
[2020-09-15 09:30] VITALS: BP 99/65; PULSE 64; TEMP 98.2
[2020-09-15] MEDS ORDERED: METHADONE (DETOX) 10 MG, METHADONE (DETOX) 5 MG PO ONE (10:00)
[2020-09-15] MEDS: PRENATAL VITAMINS W/ FOLIC ACID TABLET (FP) PO SCH (10:38)
[2020-09-15] MEDS: DORZOLAMIDE 2% HCL OPHTHALMIC SOLUTION 10 ML BOTTLE OS SCH (10:38)
[2020-09-15] MEDS: TIMOLOL 0.5% OPHTHALMIC SOL 5 ML BOTTLE OS SCH (10:38)
[2020-09-15] MEDS: NICOTINE 7 MG/24 HOURS TOPICAL PATCH TD SCH (10:39)
[2020-09-16] MEDS ORDERED: LORazepam 0.5 MG TABLET PO ONE (05:00)
[2020-09-16] MEDS ORDERED: METHADONE HCL 10 MG TABLET (FOR DETOX USE ONLY) PO ONE (10:00)
[2020-09-17] MEDS ORDERED: METHADONE HCL 5 MG TABLET (FOR DETOX USE ONLY) PO ONE (06:00)
== END 2020-09-15 13:45 | disposition left against medical advice (07) | DRG 894 ==
LOC: YASAS 13:49 → Y3N 16:35
PROVIDERS: ADMIT Allergy & Immunology; ATTEND Allergy & Immunology
PROC: HZ2ZZZZ Detoxification Services for Substance Abuse Treatment (ICD-10-PCS; principal; 2020-09-12)
DX: F11.23 Opioid dependence with withdrawal (principal); F14.20 Cocaine dependence, uncomplicated; F10.230 Alcohol dependence with withdrawal, uncomplicated; F13.230 Sedative, hypnotic or anxiolytic dependence with withdrawal, uncomplicated; F17.210 Nicotine dependence, cigarettes, uncomplicated; E88.09 Other disorders of plasma-protein metabolism, not elsewhere classified; K21.9 Gastro-esophageal reflux disease without esophagitis; H54.62 Unqualified visual loss, left eye, normal vision right eye; Z98.42 Cataract extraction status, left eye
CPT/HCPCS: 36415; 80053; 85027; 86780; C9803; U0003; U0005